=== PATIENT | female | born 1960 | race Caucasian/White ===

== ENCOUNTER → 2016-11-04 | Outpatient (CLI) | payer MEDICARE, MEDICAID | LOC: RAD 08:45 | PROVIDERS: ATTEND Orthopaedic Surgery | DX: M25.562 Pain in left knee (principal) ==

== ENCOUNTER → 2016-11-07 | Outpatient (CLI) | payer MEDICARE, MEDICAID ==
[2016-11-07 11:27] LABS: APPEARANCE,URINE SLIGHTLY-CLOUDY; BILIRUBIN,URINE NEGATIVE (NEGATIVE); GLUCOSE, URINE NEGATIVE (NEGATIVE); KETONES,URINE NEGATIVE (NEGATIVE); LEUKOCYTE ESTERASE,URINE NEGATIVE (NEGATIVE); NITRITE,URINE NEGATIVE (NEGATIVE); PROTEIN,URINE NEGATIVE (NEGATIVE); URINE SPECIFIC GRAVITY 1.018; UROBILINOGEN,URINE NEGATIVE mg/dL (<2.0)
[2016-11-07 11:36] LABS: ABSOLUTE EOSINOPHILS # (AUTO) 0.1 10^3/uL (0.0-0.6); ABSOLUTE LYMPHOCYTES (AUTO) 2.2 10^3/uL (0.5-4.7); ABSOLUTE MONOCYTES (AUTO) 0.5 10^3/uL (0.1-1.4); ABSOLUTE NEUT (AUTO) 3.2 10^3/uL (1.7-8.2); BASOPHILS % (AUTO) 0.5 % (0-2); EOSINOPHILS % (AUTO) 0.9 % (0-6); HEMATOCRIT 43.6 % (36.0-47.0); HEMOGLOBIN 14.1 g/dL (12.0-15.5); HGB HCT DIFFERENCE -1.3; LYMPHOCYTES % (AUTO) 36.5 % (13-45); MEAN CORPUSCULAR HEMOGLOBIN 31.9 pg (27.0-33.4); MEAN CORPUSCULAR HGB CONC 32.3 g/dL (32.0-36.0); MEAN CORPUSCULAR VOLUME 99 fl (80-97); MONOCYTES % (AUTO) 8.5 % (3-13); RED CELL DISTRIBUTION WIDTH 13.4 % (11.5-14.0); SEGMENTED NEUTROPHILS % (AUTO) 53.6 % (42-78)
[2016-11-07 12:02] LABS: ANION GAP 10 (5-19); BLOOD UREA NITROGEN 16 mg/dL (7-20); CALCIUM 8.6 mg/dL (8.4-10.2); CARBON DIOXIDE 29 mmol/L (22-30); CHLORIDE 100 mmol/L (98-107); CREATININE RESULT 0.58 mg/dL (0.52-1.25); GLUCOSE 122 mg/dL (75-110); POTASSIUM 3.7 mmol/L (3.6-5.0)
--- NOTE | 2016-11-07 16:27 | EKG REPORT ---
SEVERITY:- ABNORMAL ECG - SINUS RHYTHM NONSPECIFIC T ABNORMALITIES, ANTERIOR LEADS : Confirmed by: Dale Lee MD 07-Nov-2016 16:27:03
== END ==
LOC: OD 10:06
PROVIDERS: ATTEND Orthopaedic Surgery
DX: Z01.810 Encounter for preprocedural cardiovascular examination (principal); Z01.811 Encounter for preprocedural respiratory examination; Z01.818 Encounter for other preprocedural examination; S83.262D Peripheral tear of lateral meniscus, current injury, left knee, subsequent encounter; X58.XXXD Exposure to other specified factors, subsequent encounter; E11.9 Type 2 diabetes mellitus without complications; Z79.899 Other long term (current) drug therapy
CPT/HCPCS: 36415; 71020; 80048; 81001; 83036; 85025; 93005; 93010

== ENCOUNTER 2016-12-13 08:30 | Day surgery (SDC) | payer MEDICARE, MEDICAID ==
[~2016-12-13 08:30] MED LIST: CEFAZOLIN 2 GM/D5W RTU 2 GM/50 ML RTUPB IV PRN; LIDOCAINE 0.5% INJ-PF (5 MG/ML) 50 ML SDV SUBCUT PRN; NORMAL SALINE 1000 ML IV PRN
[2016-12-13] MEDS ORDERED: LIDOCAINE 0.5%/EPINEPHRINE INJ 50 ML VIAL ONE (08:58)
[2016-12-13] MEDS ORDERED: BUPIVACAINE HCL 0.5 % INJ/PF 30 ML SDV ONE (08:58)
[2016-12-13] MEDS ORDERED: FENTANYL CITRATE INJ/PF 100 MCG/2 ML AMPUL ONE ×2 (09:44)
[2016-12-13] MEDS ORDERED: MIDAZOLAM 2 MG/2 ML INJ ONE ×3 (09:45)
[2016-12-13] MEDS ORDERED: PROPOFOL INJ 200 MG/20 ML VIAL IV ONE (09:45)
[2016-12-13] MEDS ORDERED: ONDANSETRON HCL INJ/PF 4 MG/2 ML SDV IV PRN (10:02)
[2016-12-13] MEDS ORDERED: DIPHENHYDRAMINE HCL 50 MG/ML VIAL IV PRN (10:02)
[2016-12-13] MEDS ORDERED: FENTANYL CITRATE INJ/PF 100 MCG/2 ML AMPUL IV PRN ×3 (10:02)
--- NOTE | 2016-12-13 10:29 | Operative Report ---
Operative Report DATE OF SURGERY: 12/13/16 PREOPERATIVE DIAGNOSIS: Left lateral meniscal tear POSTOPERATIVE DIAGNOSIS: Left lateral meniscal tear, bucket handle. 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 Intact anterior cruciate ligament. Rate 1-2 chondral malacia the medial compartment. Degenerative tear posterior horn medial meniscus. Grade 1-2 chondral malacia the patellofemoral compartment OPERATION: Arthroscopic partial left medial and lateral meniscectomy SURGEON: BROOK SIMMS ANESTHESIA: LMAC PROCEDURE: With the patient supine on the operating table the left lower extremity is insufflated with accommodation Marcaine, Xylocaine, and epinephrine. Subsequent medial lateral infrapatellar portals are created for introduction of arthroscope and debridements instrumentation. The joint is examined Mrs. Medick fashion findings as above. Lateral meniscal tears largely a bucket- handle type tear at the rim. Scissors were placed into the lateral meniscus approximate 12:00 in approximately 4:00 on the face the dial. When these cuts had been made and grabbers and used to retrieve the interval fragment. The edges are smooth using a mechanical shaver as well as electrocautery ablation probe. Likewise, a partial medial meniscectomy is performed from approximately 8:00 to 12:00 on the face the dial. The joint is examined Mrs. Medick fashion with no new findings. Instrumentation is removed. The portals reapproximated using nylon. A sterile compressive dressing is applied and the patient's returned to PACU in satisfactory condition.
[2016-12-13 13:31] VITALS: BP 131/88
== END 2016-12-13 12:25 | disposition home or self-care (01) ==
LOC: OROUT 08:30
PROVIDERS: ATTEND Orthopaedic Surgery
PROC: 0SBD4ZZ Excision of Left Knee Joint, Percutaneous Endoscopic Approach (ICD-10-PCS; 2016-12-13)
PROC: 0SBD4ZZ Excision of Left Knee Joint, Percutaneous Endoscopic Approach (ICD-10-PCS; principal; 2016-12-13 10:30)
DX: M23.322 Other meniscus derangements, posterior horn of medial meniscus, left knee (principal); M23.362 Other meniscus derangements, other lateral meniscus, left knee; M22.42 Chondromalacia patellae, left knee; I10 Essential (primary) hypertension; M06.9 Rheumatoid arthritis, unspecified; G40.909 Epilepsy, unspecified, not intractable, without status epilepticus; E11.9 Type 2 diabetes mellitus without complications
CPT/HCPCS: 29880; 82962; J2250; J3010; J3490; J2704; J0690; 1400

== ENCOUNTER 2017-04-08 14:16 | Emergency (ER) | payer MEDICARE, MEDICAID ==
[2017-04-08] MEDS ORDERED: NORMAL SALINE 1000 ML 1,000 ML IV ONE (14:33)
--- NOTE | 2017-04-08 14:34 | ER Document Report ---
ED GI/ - General Mode of Arrival: Wheelchair Information source: Patient TRAVEL OUTSIDE OF THE [place] IN LAST 30 DAYS: No - HPI Patient complains to provider of: Dysuria, Hematuria, Vomiting Onset: Other - Refer to HPI note Associated symptoms: Chills, Dizzy, Dysuria, Fever, Hematuria, Nausea, Vomiting. denies: Blood in emesis, Blood in stool, Chest pain, Shortness of breath Similar symptoms previously: No Recently seen / treated by doctor: No <JEF ODEN - Last Filed: 04/08/17 17:07> <ARRON GRAY - Last Filed: 04/08/17 23:51> - General Chief Complaint: Nausea/Vomiting Stated Complaint: NAUSEA Time Seen by Provider: 04/08/17 14:20 Notes: Patient is a 56-year old female presenting to the emergency department via EMS for nausea and vomiting. Patient has had these symptoms for 2 days and they have worsened today. Patient also complains of dizziness, fever, chills, body aches, hematuria, and headache. Patient's headache has been present x3 days. Patient has not had a headache like this in the past. Patient states she has had hematuria in the past and she has not followed up with a urologist yet. Patient denies any history of kidney stones. Patient's last bowel movement was yesterday. Patient states she has not eaten since yesterday at lunch. Patient states she has slept for the past 2 days. Patient also states she has not taken her medications but does not say which medications she is prescribed. Patient has also been on multiple courses of Keflex since October; patient states her last dose was about 1-2 weeks ago. Patient denies hematemesis, abdominal pain, chest pain, dyspnea, or vision changes. Patient has a history of type II diabetes mellitus, hypertension, and fibromyalgia. Patient was given 975 mg PO Tylenol, 300 mL normal saline bolus, and 4 mg Zofran via EMS. (JEF ODEN) - Related Data Allergies/Adverse Reactions: morphine [Morphine] Allergy (Severe, Verified 12/11/16 15:07) Anaphylaxis mephobarbital [From Mebaral] Allergy (Mild, Verified 12/11/16 15:07) Hives etanercept [From Enbrel] Allergy (Verified 12/13/16 09:15) pregabalin [From Lyrica] Allergy (Verified 12/13/16 09:11) zolpidem [From Ambien] Allergy (Verified 12/13/16 09:11) Blueberries Allergy (Severe, Uncoded 03/30/15 12:54) Anaphylaxis Mushrooms Allergy (Severe, Uncoded 03/30/15 12:54) Anaphylaxis Tomatoes Allergy (Severe, Uncoded 03/30/15 12:54) Anaphylaxis Past Medical History - General Information source: Patient - Social History Smoking Status: Current Every Day Smoker Chew tobacco use (# tins/day): No Frequency of alcohol use: None Drug Abuse: None Family History: CAD, Other - [place] father and brother Patient has suicidal ideation: No Patient has homicidal ideation: No - Past Medical History Cardiac Medical History: Reports: Hx Coronary Artery Disease, Hx Heart Attack, Hx Hypercholesterolemia, Hx Hypertension Pulmonary Medical History: Reports: Hx Asthma, Hx Pneumonia Neurological Medical History: Denies: Hx Seizures - @12YRS OLD Endocrine Medical History: Reports: Hx Diabetes Mellitus Type 2 - takes insulin GI Medical History: Reports: Hx Gastroesophageal Reflux Disease Musculoskeltal Medical History: Reports Hx Arthritis Psychiatric Medical History: Reports: Hx Depression Past Surgical History: Reports: Hx Section, Hx Cholecystectomy, Hx Hysterectomy - Immunizations Immunizations up to date: Yes Hx Diphtheria, Pertussis, Tetanus Vaccination: Yes - 2010 <JEF ODEN - Last Filed: 04/08/17 17:07> Review of Systems - Review of Systems Constitutional: See HPI, Chills, Fever, Malaise EENT: No symptoms reported Cardiovascular: See HPI, Dizziness Respiratory: No symptoms reported Gastrointestinal: See HPI, Nausea, Vomiting, Poor appetite, Poor fluid intake Genitourinary: See HPI, Dysuria, Hematuria Female Genitourinary: No symptoms reported Musculoskeletal: See HPI Skin: No symptoms reported Hematologic/Lymphatic: No symptoms reported Neurological/Psychological: See HPI, Headaches -: Yes All other systems reviewed and negative <JEF ODEN - Last Filed: 04/08/17 17:07> Physical Exam - Vital signs Interpretation: Tachycardic, Febrile <JEF ODEN - Last Filed: 04/08/17 17:07> <ARRON GRAY - Last Filed: 04/08/17 23:51> - Vital signs Vitals: Temp 100.5 F H 06/18/17 14:24 Blood pressure: 105/75, 04/08/2017 14:36 Heart Rate: 108, 04/08/2017 14:36 (JEF ODEN) - Notes Notes: GENERAL: Alert, interacts well, appears uncomfortable. No acute distress. HEAD: Normocephalic, atraumatic. EYES: Pupils equal, round, and reactive to light. Extraocular movements intact. ENT: Oral mucosa moist, tongue midline. NECK: Full range of motion. Supple. Trachea midline. LUNGS: Clear to auscultation bilaterally, no wheezes, rales, or rhonchi. No respiratory distress. HEART: Tachycardic. Regular rhythm. No murmurs, gallops, or rubs. ABDOMEN: Epigastric and right upper quadrant tenderness to palpation, no guarding rebound or rigidity. Non-distended. Bowel sounds present in all 4 quadrants. EXTREMITIES: Moves all 4 extremities spontaneously. Abrasion to the right knee. No edema. No cyanosis. NEUROLOGICAL: Alert and oriented x3. Normal speech. PSYCH: Normal affect, normal mood. SKIN: Warm, dry, normal turgor. (JEF ODEN) Course - Laboratory Result Diagrams: 04/08/17 14:45 04/08/17 14:45 <JEF ODEN - Last Filed: 04/08/17 17:07> - Laboratory Result Diagrams: 04/08/17 14:45 04/08/17 14:45 <ARRON GRAY - Last Filed: 04/08/17 23:51> - Re-evaluation Re-evalutation: 04/08/17 18:01 CBC shows leukocytosis of 16.5, venous blood gas is mildly alkalotic with a low CO2 likely from rapid breathing due to pain and fever, sodium slightly low at 135.5, potassium low at 3.1 this is repleted orally, glucose somewhat elevated at 232, lactic acid normal at 1.3, lipase normal, LFTs normal urinalysis shows small blood, positive nitrates, small leukocyte esterase, 3+ bacteria and 22 WBCs, less than 1 squamous epithelial cells. This has been sent for culture. Consistent with pyelonephritis, patient is treated with Rocephin and then placed on Keflex. Discharged to home. 04/08/17 18:06 Heart rate normalized after a liter of normal saline. (ARRON GRAY) - Vital Signs Vital signs: Temp Pulse Resp BP Pulse Ox 97.5 F 13 121/76 97 04/08/17 18:27 04/08/17 19:01 04/08/17 19:01 04/08/17 19:01 - Laboratory Laboratory results interpreted by me: 04/08/17 04/08/17 04/08/17 14:45 14:45 14:45 WBC 16.5 H Seg Neutrophils % 84.9 H Lymphocytes % 6.0 L Absolute Neutrophils 14.0 H Absolute Monocytes 1.5 H VBG pH 7.51 H VBG pCO2 31.0 L Sodium 135.5 L Potassium 3.1 L Glucose 232 H POC Glucose Total Bilirubin 2.2 H Urine Protein Urine Glucose (UA) Urine Ketones Urine Blood Urine Nitrite Ur Leukocyte Esterase 04/08/17 04/08/17 04/08/17 15:09 15:20 18:01 WBC Seg Neutrophils % Lymphocytes % Absolute Neutrophils Absolute Monocytes VBG pH VBG pCO2 Sodium Potassium Glucose POC Glucose 223 H 190 H Total Bilirubin Urine Protein 30 H Urine Glucose (UA) 50 H Urine Ketones 20 H Urine Blood SMALL H Urine Nitrite POSITIVE H Ur Leukocyte Esterase SMALL H Discharge <JEF ODEN - Last Filed: 04/08/17 17:07> <ARRON GRAY - Last Filed: 04/08/17 23:51> - Discharge Clinical Impression: Pyelonephritis, acute Condition: Stable Disposition: HOME, SELF-CARE Instructions: Pyelonephritis (OM) Prescriptions: Cephalexin Monohydrate [Keflex 500 mg Capsule] 500 mg PO QID #28 capsule Referrals: MARK RUVALCABA DO [Primary Care Provider] - Follow up in 3-5 days Scribe Attestation: 04/08/17 23:51 I personally performed the services described in the documentation, reviewed and edited the documentation which was dictated to the scribe in my presence, and it accurately records my words and actions. (ARRON GRAY) Scribe Documentation - Scribe Written by Scribe:: Irina Sullivan, 04/08/2017 16:10 acting as scribe for :: Andrae <JEF ODEN - Last Filed: 04/08/17 17:07>
[2017-04-08 15:06] LABS: ABSOLUTE BASOPHILS # (AUTO) 0.1 10^3/uL (0.0-0.2); ABSOLUTE MONOCYTES (AUTO) 1.5 10^3/uL (0.1-1.4); BASOPHILS % (AUTO) 0.3 % (0-2); HEMATOCRIT 43.7 % (36.0-47.0); HEMOGLOBIN 14.5 g/dL (12.0-15.5); HGB HCT DIFFERENCE -0.2; MEAN CORPUSCULAR HEMOGLOBIN 31.3 pg (27.0-33.4); MEAN CORPUSCULAR HGB CONC 33.1 g/dL (32.0-36.0); MEAN CORPUSCULAR VOLUME 95 fl (80-97); MONOCYTES % (AUTO) 8.8 % (3-13); RED BLOOD COUNT 4.62 10^6/uL (3.72-5.28); RED CELL DISTRIBUTION WIDTH 13.3 % (11.5-14.0); SEGMENTED NEUTROPHILS % (AUTO) 84.9 % (42-78); WHITE BLOOD COUNT 16.5 10^3/uL (4.0-10.5)
[2017-04-08 15:10] LABS: VENOUS BLOOD HCO3 24.2 mmol/L (20-32); VENOUS BLOOD PH 7.51 (7.30-7.42)
[2017-04-08] MEDS ORDERED: ONDANSETRON HCL INJ/PF 4 MG/2 ML SDV IV ONE (15:12)
[2017-04-08] MEDS ORDERED: KETOROLAC TROMETHAMINE INJ/PF 30 MG/1 ML SDV IV ONE (15:12)
[2017-04-08 15:22] LABS: ALANINE AMINOTRANSFERASE 32 U/L (9-52); ALBUMIN 3.6 g/dL (3.5-5.0); ALKALINE PHOSPHATASE 89 U/L (38-126); ANION GAP 13 (5-19); ASPARTATE AMINO TRANSFERASE 18 U/L (14-36); BILIRUBIN,DIRECT 0.2 mg/dL (0.0-0.4); BILIRUBIN,TOTAL 2.2 mg/dL (0.2-1.3); BLOOD UREA NITROGEN 11 mg/dL (7-20); CALCIUM 8.8 mg/dL (8.4-10.2); CARBON DIOXIDE 22 mmol/L (22-30); CHLORIDE 101 mmol/L (98-107); CREATININE RESULT 0.59 mg/dL (0.52-1.25); GLUCOSE 232 mg/dL (75-110); POTASSIUM 3.1 mmol/L (3.6-5.0); SODIUM 135.5 mmol/L (137-145); TOTAL PROTEIN 6.6 g/dL (6.3-8.2)
[2017-04-08 15:37] LABS: APPEARANCE,URINE SLIGHTLY-CLOUDY; BILIRUBIN,URINE NEGATIVE (NEGATIVE); GLUCOSE, URINE 50 mg/dL (NEGATIVE); KETONES,URINE 20 mg/dL (NEGATIVE); LEUKOCYTE ESTERASE,URINE SMALL (NEGATIVE); NITRITE,URINE POSITIVE (NEGATIVE); PROTEIN,URINE 30 mg/dL (NEGATIVE); URINE SPECIFIC GRAVITY 1.024; UROBILINOGEN,URINE NEGATIVE mg/dL (<2.0)
--- NOTE | 2017-04-08 16:07 | RADIOLOGY REPORT (SQ) ---
EXAM DESCRIPTION: CHEST PA/LAT COMPLETED DATE/TIME: 04/08/2017 3:59 pm REASON FOR STUDY: N/V/D, fevers COMPARISON: 01/29/2016 EXAM PARAMETERS: NUMBER OF VIEWS: two views TECHNIQUE: Digital Frontal and Lateral radiographic views of the chest acquired. RADIATION DOSE: NA LIMITATIONS: none FINDINGS: LUNGS AND PLEURA: No opacities, masses or pneumothorax. No pleural effusion. MEDIASTINUM AND HILAR STRUCTURES: No masses or contour abnormalities. HEART AND VASCULAR STRUCTURES: Heart normal size. No evidence for failure. BONES: No acute findings. HARDWARE: None in the chest. OTHER: No other significant finding. IMPRESSION: NO SIGNIFICANT RADIOGRAPHIC FINDING IN THE CHEST. TECHNICAL DOCUMENTATION: JOB ID: [id number] [employer]- All Rights Reserved
[2017-04-08] MEDS ORDERED: CEFTRIAXONE 1 GM/D5W RTU 50 ML IV ONE (16:48)
[2017-04-08] MEDS ORDERED: HYDROCODONE/ACETAMINOPHEN 5-325 MG 6 TAB/DSPK PO PRN (18:05)
[2017-04-08] MEDS ORDERED: ONDANSETRON ODT 4 MG TAB (6 TAB/DSPK) PO PRN (18:05)
[2017-04-08] MEDS ORDERED: POTASSIUM CHLORIDE 10 MEQ TABLET.SA PO ONE (19:15)
[2017-04-08 19:20] VITALS: BP 121/76
--- NOTE | 2017-04-09 10:22 | EKG REPORT ---
SEVERITY:- OTHERWISE NORMAL ECG - SINUS TACHYCARDIA : Confirmed by: Mercedes Frye MD 09-Apr-2017 10:21:08
== END 2017-04-08 19:20 | disposition home or self-care (01) ==
LOC: ER 14:16
DX: N10 Acute pyelonephritis (principal); D72.829 Elevated white blood cell count, unspecified; R42 Dizziness and giddiness; R11.2 Nausea with vomiting, unspecified; R50.9 Fever, unspecified; R31.9 Hematuria, unspecified; R00.0 Tachycardia, unspecified; R51 Headache; R53.81 Other malaise; R63.0 Anorexia; E11.9 Type 2 diabetes mellitus without complications; I25.10 Atherosclerotic heart disease of native coronary artery without angina pectoris; I25.2 Old myocardial infarction; I10 Essential (primary) hypertension; J45.909 Unspecified asthma, uncomplicated; F17.200 Nicotine dependence, unspecified, uncomplicated; Z88.8 Allergy status to other drugs, medicaments and biological substances; Z88.6 Allergy status to analgesic agent; Z87.892 Personal history of anaphylaxis; Z91.018 Allergy to other foods; Z88.5 Allergy status to narcotic agent
CPT/HCPCS: 93005; 99284; 96361; 51701; 96375; 96365; 36415; 87040; 87086; 82962; 83690; 85025; 85610; 87077; 87088; 80053; 81001; 87186; 82803; 83605; 71020; 93010; J1885; J2405; J7030; J0696; A9270 ×2

== ENCOUNTER → 2017-07-31 | Outpatient (CLI) | payer MEDICAID, MEDICARE ==
--- NOTE | 2017-07-31 16:42 | WOMENS IMAGING REPORT ---
EXAM DESCRIPTION: BILAT SCREENING MAMMO W/CAD COMPLETED DATE/TIME: 07/31/2017 8:00 am REASON FOR STUDY: SCREENING MAMMO Z12.31 ENCNTR SCREEN MAMMOGRAM FOR MALIGNANT NEOPLASM OF [place]KI COMPARISON: 2011 to 2015 TECHNIQUE: Standard craniocaudal and mediolateral oblique views of each breast recorded using digita l acquisition. LIMITATIONS: None. FINDINGS: No masses, calcifications or architectural distortion. No areas of suspicion. Read with the assistance of CAD. .[facility] - R2 Cenova Version 1.3 .[facility] - R2 Cenova Version 1.3 .[facility] - R2 Cenova Version 2.4 .[facility] [place] - R2 Cenova Version 2.4 .[facility] - R2 Prosthodontist/Owner Version 9.2 IMPRESSION: NORMAL MAMMOGRAM. BIRADS 1. BREAST DENSITY: b. There are scattered areas of fibroglandular density. BIRAD: 1 NEGATIVE RECOMMENDATION: ROUTINE SCREENING COMMENT: The patient has been notified of the results by letter per MQSA requirements. Additional no tification policies are in place for contacting patient with suspicious or incomplete findings. Quality ID #[id number]: The [employer] recommends an annual screening mammogram for women aged 40 years or over. This facility utilizes a reminder system to ensure that all patients receive reminder letters, and/or direct phone calls for appointments. This includes reminders for routine scr eening mammograms, diagnostic mammograms, or other Breast Imaging Interventions when appropriate. Th is patient will be placed in the appropriate reminder system. The [employer] (ACR) has developed recommendations for screening MRI of the breast s in certain patient populations, to be used in conjunction with mammography. Breast MRI surveillanc e may be appropriate for women with more than 20% lifetime risk of developing breast cancer as deter mined by genetic testing, significant family history of the disease, or history of mantle radiation f or Hodgkins Disease. ACR Practice Guidelines 2008. TECHNICAL DOCUMENTATION: FINDING NUMBER: (1) ASSESSMENT: (1) JOB ID: [id number] [employer]- All Rights Reserved
== END ==
LOC: WI 07:39
PROVIDERS: ATTEND Student in an Organized Health Care Education/Training Program
DX: Z12.31 Encounter for screening mammogram for malignant neoplasm of breast (principal)
CPT/HCPCS: 77067; G0202

== ENCOUNTER 2017-12-12 16:56 | Observation (INO) | payer MEDICARE, MEDICAID ==
[2017-12-12] MEDS ORDERED: NITROGLYCERIN 5 MG (0.2 MG/HR) PATCH.TD24 TD ONE (17:27)
[2017-12-12] MEDS ORDERED: OXYCODONE-ACETAMINOPHEN 5-325 MG TABLET PO ONE ×2 (17:27→23:30)
[2017-12-12] MEDS ORDERED: PROMETHAZINE HCL 25 MG TABLET PO ONE (17:27)
--- NOTE | 2017-12-12 17:30 | ER Document Report ---
ED Cardiac - General Chief Complaint: Chest Pain > 30 Stated Complaint: CHEST PAIN Time Seen by Provider: 12/12/17 17:25 Notes: Patient is having chest pain, starting about 3 PM while she was standing doing dishes. It started in the left upper anterior chest and went down her left arm. She had very severe sweats and felt nauseated but never vomited. [place] pressure in the front of the chest and seemed to have pressure when she breathed. Her symptoms eased only to return again, once more with heavy sweating and feeling dizzy off and on and nauseated. Then, she had a third spell with similar symptoms and called EMS. EMS provided her with a regular aspirin and a sublingual nitro, but the patient says it did not help her symptoms. Patient has a history of coronary artery disease and has had a stent placed in 2012. She has done well since then with little or no chest pains until this current chest pain today. Also has hypertension, NIDDM, high cholesterol. She has a operational risk analyst in [place] whom she is scheduled to see for her yearly checkup in 1 week. She said that she intended to get a bottle of nitroglycerin from him at that visit. TRAVEL OUTSIDE OF THE [place] IN LAST 30 DAYS: No - Related Data Allergies/Adverse Reactions: morphine [Morphine] Allergy (Severe, Verified 12/12/17 17:14) Anaphylaxis mephobarbital [From Mebaral] Allergy (Mild, Verified 12/12/17 17:14) Hives etanercept [From Enbrel] Allergy (Verified 12/12/17 17:14) pregabalin [From Lyrica] Allergy (Verified 12/12/17 17:14) zolpidem [From Ambien] Allergy (Verified 12/12/17 17:14) Blueberries Allergy (Severe, Uncoded 12/12/17 17:14) Anaphylaxis Mushrooms Allergy (Severe, Uncoded 12/12/17 17:14) Anaphylaxis Tomatoes Allergy (Severe, Uncoded 12/12/17 17:14) Anaphylaxis Past Medical History - Social History Smoking Status: Current Every Day Smoker - Says she smokes 3 or 4 cigarettes a day. Family History: Reviewed & Not Pertinent, CAD, Other - [place] father and brother Patient has suicidal ideation: No Patient has homicidal ideation: No - Past Medical History Cardiac Medical History: Reports: Hx Coronary Artery Disease, Hx Heart Attack, Hx Hypercholesterolemia, Hx Hypertension Pulmonary Medical History: Reports: Hx Asthma, Hx Pneumonia Endocrine Medical History: Reports: Hx Diabetes Mellitus Type 2 - takes insulin GI Medical History: Reports: Hx Gastroesophageal Reflux Disease Musculoskeltal Medical History: Reports Hx Arthritis, Reports Hx Fibromyalgia Psychiatric Medical History: Reports: Hx Depression Past Surgical History: Reports: Hx Section, Hx Cholecystectomy, Hx Hysterectomy - Immunizations Immunizations up to date: Yes Hx Diphtheria, Pertussis, Tetanus Vaccination: Yes - 2010 Review of Systems - Review of Systems Notes: REVIEW OF SYSTEMS: CONSTITUTIONAL : Denies fever. Had flulike symptoms a couple of weeks ago. EENT: Denies eye, ear, nose or mouth or throat pain or other symptoms. CARDIOVASCULAR: Denies chest pain. No peripheral edema. RESPIRATORY: Denies cough, chest congestion, or shortness of breath. GASTROINTESTINAL: Denies abdominal pain or nausea, vomiting, or diarrhea. GENITOURINARY: Denies difficulty or painful urinating, urinary frequency, blood in urine. MUSCULOSKELETAL: Denies back or neck pain. Has generalized joint pains from arthritis, but no joint swelling. No leg pain or swelling. SKIN: Denies rash or skin lesions. NEUROLOGICAL: Denies LOC or altered mental status. Denies headache. Denies sensory loss or motor deficits. ALL OTHER SYSTEMS REVIEWED AND NEGATIVE. Physical Exam - Vital signs Vitals: Temp 98.3 F 12/12/17 17:00 Interpretation: Normal, Hypotensive - Blood pressure slightly low, one reading of 97/62. - Notes Notes: PHYSICAL EXAMINATION: GENERAL: Well-appearing, in no acute distress. Vital signs all normal. Blood pressures slightly low. HEAD: Atraumatic, normocephalic. EYES: Pupils equal round and reactive to light, extraocular movements intact. ENT: oropharynx clear without exudates. Moist mucous membranes. NECK: Normal range of motion, supple. LUNGS: Breath sounds clear and equal bilaterally. No chest wall or rib tenderness to press. HEART: Regular rate and rhythm without murmurs. ABDOMEN: Soft, nontender. No guarding or rebound. No masses. BACK: No tenderness throughout entire back. EXTREMITIES: Normal range of motion without pain. No leg pain or swelling. Negative Homans bilaterally. NEUROLOGICAL: Normal speech, normal gait. Normal sensory, motor, and reflex exams. Awake, alert, and oriented x3. Cranial nerves normal. PSYCH: Normal mood, normal affect. SKIN: Warm, dry, no rashes. Course - Re-evaluation Re-evalutation: 12/12/17 18:55 Entire workup initially normal. EKG without acute changes. Chest x-ray normal. Lab studies all essentially normal. Spoke with Dr. Atkinson, and he said he would refer patient to the night physician when they come on duty. - Vital Signs Vital signs: Temp Pulse Resp BP Pulse Ox 98.3 F 15 104/70 98 12/12/17 17:00 12/12/17 19:01 12/12/17 19:00 12/12/17 19:01 - Laboratory Result Diagrams: 12/12/17 16:31 12/12/17 16:31 Laboratory results interpreted by me: 12/12/17 12/12/17 16:31 18:30 BUN 21 H Glucose 143 H Urine Nitrite POSITIVE H - Diagnostic Test Radiology results interpreted by me: 12/12/17 18:58 Chest x-ray is normal. - EKG Interpretation by Nd EKG shows normal: Sinus rhythm Rate: Normal - 76. Rhythm: NSR Additional EKG results interpreted by me: 12/12/17 18:58 Patient EKG has some minor ST changes, nonspecific. Discharge - Discharge Clinical Impression: Chest pain, CAD (coronary artery disease) Condition: Stable Disposition: ADMITTED OBSERVATION Admitting Provider: Hospitalist Unit Admitted: Telemetry Referrals: MARK RUVALCABA DO [Primary Care Provider] - Follow up as needed
[2017-12-12 17:38] LABS: ABSOLUTE BASOPHILS # (AUTO) 0.1 10^3/uL (0.0-0.2); ABSOLUTE EOSINOPHILS # (AUTO) 0.1 10^3/uL (0.0-0.6); ABSOLUTE LYMPHOCYTES (AUTO) 2.7 10^3/uL (0.5-4.7); ABSOLUTE MONOCYTES (AUTO) 0.6 10^3/uL (0.1-1.4); ABSOLUTE NEUT (AUTO) 3.3 10^3/uL (1.7-8.2); BASOPHILS % (AUTO) 0.9 % (0-2); EOSINOPHILS % (AUTO) 2.2 % (0-6); HEMATOCRIT 43.7 % (36.0-47.0); HEMOGLOBIN 14.8 g/dL (12.0-15.5); LYMPHOCYTES % (AUTO) 39.4 % (13-45); MEAN CORPUSCULAR HEMOGLOBIN 31.5 pg (27.0-33.4); MEAN CORPUSCULAR HGB CONC 33.8 g/dL (32.0-36.0); MEAN CORPUSCULAR VOLUME 93 fl (80-97); MONOCYTES % (AUTO) 8.5 % (3-13); PLATELET COUNT 273 10^3/uL (150-450); RED BLOOD COUNT 4.69 10^6/uL (3.72-5.28); RED CELL DISTRIBUTION WIDTH 12.3 % (11.5-14.0); TOTAL CELLS COUNTED % (AUTO) 100 %; WHITE BLOOD COUNT 6.8 10^3/uL (4.0-10.5)
[2017-12-12 17:45] LABS: INTERNATIONAL RATION (INR) 0.91; PROTHROMBIN TIME 12.9 SEC (11.4-15.4)
[2017-12-12 18:00] LABS: ALANINE AMINOTRANSFERASE 24 U/L (9-52); ALKALINE PHOSPHATASE 80 U/L (38-126); ANION GAP 12 (5-19); ASPARTATE AMINO TRANSFERASE 23 U/L (14-36); BILIRUBIN,DIRECT 0.4 mg/dL (0.0-0.4); BILIRUBIN,TOTAL 0.9 mg/dL (0.2-1.3); BLOOD UREA NITROGEN 21 mg/dL (7-20); CALCIUM 9.3 mg/dL (8.4-10.2); CARBON DIOXIDE 26 mmol/L (22-30); CHLORIDE 106 mmol/L (98-107); CREATINE KINASE 47 U/L (30-135); GLUCOSE 143 mg/dL (75-110); SODIUM 143.8 mmol/L (137-145); TOTAL PROTEIN 6.9 g/dL (6.3-8.2)
[2017-12-12 18:09] LABS: CREATINE KINASE MB 0.71 ng/mL (<4.55)
[2017-12-12] MEDS ORDERED: NORMAL SALINE 1000 ML 1,000 ML IV ONE (18:12)
[2017-12-12 18:23] LABS: TROPONIN I < 0.012 ng/mL
--- NOTE | 2017-12-12 18:24 | EKG REPORT ---
SEVERITY:- BORDERLINE ECG - SINUS RHYTHM BORDERLINE T ABNORMALITIES, ANT-LAT LEADS : Confirmed by: Dale Lee MD 12-Dec-2017 18:22:51
--- NOTE | 2017-12-12 18:43 | RADIOLOGY REPORT (SQ) ---
EXAM DESCRIPTION: CHEST SINGLE VIEW COMPLETED DATE/TIME: 12/12/2017 6:25 pm REASON FOR STUDY: Chest pain COMPARISON: 04/08/2017 EXAM PARAMETERS: NUMBER OF VIEWS: One view. TECHNIQUE: Single frontal radiographic view of the chest acquired. RADIATION DOSE: NA LIMITATIONS: None. FINDINGS: LUNGS AND PLEURA: No opacities, masses or pneumothorax. No pleural effusion. MEDIASTINUM AND HILAR STRUCTURES: No masses. Contour normal. HEART AND VASCULAR STRUCTURES: Heart normal in size. Normal vasculature. BONES: No acute findings. HARDWARE: None in the chest. OTHER: No other significant finding. IMPRESSION: NO ACUTE RADIOGRAPHIC FINDING IN THE CHEST. TECHNICAL DOCUMENTATION: JOB ID: [id number] [employer]- All Rights Reserved
[2017-12-12 19:13] LABS: APPEARANCE,URINE SLIGHTLY-CLOUDY; BILIRUBIN,URINE NEGATIVE (NEGATIVE); COLOR,URINE YELLOW; GLUCOSE, URINE NEGATIVE (NEGATIVE); KETONES,URINE NEGATIVE (NEGATIVE); LEUKOCYTE ESTERASE,URINE NEGATIVE (NEGATIVE); NITRITE,URINE POSITIVE (NEGATIVE); PROTEIN,URINE NEGATIVE (NEGATIVE); UROBILINOGEN,URINE NEGATIVE mg/dL (<2.0)
[2017-12-12] MEDS ORDERED: DEXTROSE 50%-WATER 25 GM/50 ML DISP.SYRIN IV PRN ×2 (20:36)
[2017-12-12] MEDS ORDERED: DEXTROSE 40% GEL 15 GM TUBE PO PRN ×2 (20:36)
[2017-12-12] MEDS ORDERED: ONDANSETRON 4 MG TAB.RAPDIS PO PRN (20:36)
[2017-12-12] MEDS ORDERED: PROMETHAZINE HCL INJ 25 MG/1 ML VIAL IV PRN (20:36)
[2017-12-12] MEDS ORDERED: ALBUTEROL SULFATE 0.083% NEB 2.5 MG/3 ML AMPUL NEB PRN (20:36)
[2017-12-12] MEDS ORDERED: ACETAMINOPHEN 325 MG TABLET PO PRN (20:36)
[2017-12-12] MEDS ORDERED: GLUCAGON,HUMAN RECOMB 1 MG INJ SUBCUT PRN (20:36)
[2017-12-12] MEDS ORDERED: ENOXAPARIN SODIUM INJ 40 MG/0.4 ML DISP.SYRIN SUBCUT ONE (22:00)
--- NOTE | 2017-12-12 22:44 | PDOC H&P ---
History of Present Illness Admission Date/PCP: 12/12/17 19:55 MARK RUVALCABA DO Patient complains of: Intermittent chest pain since 3 PM. History of Present Illness: DIANA SHORT is a 57 year old female history of CAD/CO (post cardiac cath with one stent placed in 2012), type 2 diabetes mellitus, rheumatoid arthritis and fibromyalgia was admitted with above-mentioned complaints. The patient describes her pain as pressure-like, localized to the left anterior chest wall with radiation down her left arm, lasting about 15 minutes at a time. she rates it as 8/10 intensity which is somewhat improved after she was given 4 baby aspirins and 1 sublingual nitro by EMS. The pain seems to be positional and reproducible. It was associated with shortness of breath, lightheadedness 3 episodes, no syncope, nausea vomiting or palpitations. She said that she felt diaphoretic once. She denied any fever, chills but she has been having a productive cough of clear sputum for the last 2 weeks. She apparently was diagnosed with the flu although she her flu test was negative but her granddaughter had the flu. She said that her chest pain is similar to the pain she felt in 2013. It was not similar to heartburns. In the ED, temperature was 98.3, heart rate 69, respiratory rate 16, blood pressure 104/70 with oxygen saturation of 98% on room air. Her initial troponin was negative and her CXR was unremarkable. She received 0.5 mg nitropaste with improvement in her chest pain which he currently describes as "soreness". Past Medical History Cardiac Medical History: Reports: Coronary Artery Disease, Myocardial Infarction , Hyperlipidema, Hypertension Pulmonary Medical History: Reports: Asthma, Pneumonia Denies: Bronchitis, Chronic Obstructive Pulmonary Disease (COPD), Tuberculosis Neurological Medical History: Denies: Seizures - @12YRS OLD Endocrine Medical History: Reports: Diabetes Mellitus Type 2 - oral medications GI Medical History: Reports: Gastroesophageal Reflux Disease Musculoskeltal Medical History: Reports: Arthritis - rheumatoid arthritis, Fibromyalgia Psychiatric Medical History: Reports: Depression Hematology: Denies: Anemia Past Surgical History Past Surgical History: Reports: Section - x1, Cholecystectomy, Hysterectomy, Other - bilateral knees arthroscopies. Social History Smoking Status: Current Every Day Smoker - Says she smokes 3 or 4 cigarettes a day. Cigarettes Packs Per Day: 4 - 4-5 cigarettes a day for 43 years. Frequency of Alcohol Use: Rare Hx Recreational Drug Use: No Drugs: None Hx Prescription Drug Abuse: No Family History Family History: Reviewed & Not Pertinent, CAD, Other - CO father and brother Parental Family History Reviewed: Yes - Father: CAD/DM2; Mother:CAD/DM2 Children Family History Reviewed: No Sibling(s) Family History Reviewed.: Yes - Brother: CAD/DM2 Medication/Allergy Home Medications: Alprazolam [Xanax 0.5 mg Tablet] 0.5 mg PO Q12HP PRN 12/12/17 Atorvastatin Calcium [Lipitor 20 mg Tablet] 20 mg PO QPM 12/12/17 Celecoxib [Celebrex 100 mg Capsule] 100 mg PO Q12 12/12/17 Colestipol HCl [Colestid 1 gm Tablet] 1 gm PO NOON 12/12/17 Colestipol HCl [Colestid 1 gm Tablet] 1 gm PO QHS 12/12/17 Duloxetine HCl [Cymbalta] 60 mg PO Q12 12/12/17 Folic Acid [Folvite 1 mg Tablet] 1 mg PO QAM 12/12/17 Metoprolol Tartrate [Lopressor 25 mg Tablet] 25 mg PO QAM 12/12/17 Metoprolol Tartrate [Lopressor 25 mg Tablet] 50 mg PO QHS 12/12/17 Montelukast Sodium [Singulair 10 mg Tablet] 10 mg PO QPM 12/12/17 Omeprazole 40 mg PO QAM 12/12/17 Sitagliptin Phos/Metformin HCl [Janumet 50-1,000 mg Tablet] 2 tab PO QPM Allergies/Adverse Reactions: morphine [Morphine] Allergy (Severe, Verified 12/12/17 17:14) Anaphylaxis mephobarbital [From Mebaral] Allergy (Mild, Verified 12/12/17 17:14) Hives etanercept [From Enbrel] Allergy (Verified 12/12/17 17:14) pregabalin [From Lyrica] Allergy (Verified 12/12/17 17:14) zolpidem [From Ambien] Allergy (Verified 12/12/17 17:14) Blueberries Allergy (Severe, Uncoded 12/12/17 17:14) Anaphylaxis Mushrooms Allergy (Severe, Uncoded 02/21/18 17:14) Anaphylaxis Tomatoes Allergy (Severe, Uncoded 12/12/17 17:14) Anaphylaxis Review of Systems Constitutional: ABSENT: chills, fever(s), headache(s), weight gain, weight loss Eyes: ABSENT: visual disturbances Ears: ABSENT: hearing changes Cardiovascular: PRESENT: chest pain, dyspnea on exertion. ABSENT: edema, orthropnea, palpitations Respiratory: PRESENT: cough. ABSENT: hemoptysis Gastrointestinal: PRESENT: hematemesis, hematochezia. ABSENT: abdominal pain, constipation, diarrhea, nausea, vomiting Genitourinary: ABSENT: dysuria, hematuria Musculoskeletal: ABSENT: joint swelling Integumentary: ABSENT: rash, wounds Neurological: PRESENT: dizziness. ABSENT: focal weakness, syncope Psychiatric: ABSENT: anxiety, depression, homidical ideation, suicidal ideation Endocrine: ABSENT: cold intolerance, heat intolerance, polydipsia, polyuria Physical Exam Vital Signs: Temp Pulse Resp BP Pulse Ox 98.3 F 14 102/71 100 12/12/17 20:08 12/12/17 20:08 12/12/17 20:08 12/12/17 20:08 General appearance: PRESENT: no acute distress, well-developed, well-nourished Head exam: PRESENT: atraumatic, normocephalic Eye exam: PRESENT: conjunctiva pink, PERRLA. ABSENT: scleral icterus Mouth exam: PRESENT: moist, tongue midline Neck exam: ABSENT: carotid bruit, JVD Respiratory exam: PRESENT: clear to auscultation yen. ABSENT: rales, rhonchi, wheezes Cardiovascular exam: PRESENT: RRR. ABSENT: diastolic murmur, rubs, systolic murmur Pulses: PRESENT: normal dorsalis pedis pul Vascular exam: PRESENT: normal capillary refill GI/Abdominal exam: PRESENT: normal bowel sounds, soft. ABSENT: distended, rebound, tenderness Rectal exam: PRESENT: deferred Extremities exam: PRESENT: full ROM. ABSENT: pedal edema Neurological exam: PRESENT: alert, awake, oriented to person, oriented to place , oriented to time, oriented to situation, CN II-XII grossly intact. ABSENT: motor sensory deficit Psychiatric exam: PRESENT: appropriate affect, normal mood. ABSENT: homicidal ideation, suicidal ideation Skin exam: PRESENT: dry, intact, warm. ABSENT: cyanosis, rash Results Laboratory Results: CBC: WBC 6.8, hemoglobin 14.8, hematocrit 42.7, platelets 273, MCV 93 RDW 12.3. And BMP: Sodium 143, potassium 4.0, chloride 106, bicarb 26, BUN 21, creatinine 0.7 , glucose 143. PT/INR 12.9/0.91. Troponin negative. UA negative. EKG Comments: 12-lead EKG: Sinus rhythm, ventricular rate 75, Energy 0, T-wave inversion in leads V2 and V3 with flattened T-wave in lead III. No previous EKG to compare. Impressions: Chest X-Ray 12/12/17 18:02 IMPRESSION: NO ACUTE RADIOGRAPHIC FINDING IN THE CHEST. Assessment & Plan - Diagnosis (1) Chest pain Qualifiers: Chest pain type: unspecified Qualified Code(s): R07.9 - Chest pain, unspecified Is this a current diagnosis for this admission?: Yes Plan: Secondary to cardiac etiology and/or musculoskeletal. We will continue to cycle cardiac enzymes and repeat a 12-lead EKG. We will also check ESR and CRP and an echocardiogram in a.m. If her troponins 2 sets remain negative, she will have a nuclear stress test. Of note, the patient apparently follows with cardiology and she has annual nuclear stress test with the last one done in August 2016 which was reportedly negative per patient. will continue ASA and start metoprolol after nuclear stress done. 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 The patient said that she is only on oral medications. Her medications' list needs to be clarified in a.m. (3) Essential hypertension Is this a current diagnosis for this admission?: Yes Plan: We will monitor her blood pressure and adjust medications as needed. Her home medications' list needs to be clarified in a.m. (4) Rheumatoid arthritis Qualifiers: Laterality: unspecified laterality Is this a current diagnosis for this admission?: No Plan: The patient follows with rheumatology as outpatient. She is off methotrexate. she currently takes a medication (not sure about the name) once a month which is due on 01/12/2018. - Time Time Spent: Greater than 70 Minutes Medications reviewed and adjusted accordingly: No - patient is not sure about the accuracy of her medications list. Anticipated discharge: Home Within: within 24 hours - Inpatient Certification Based on my medical assessment, after consideration of the patient's comorbidities, presenting symptoms, or acuity I expect that the services needed warrant INPATIENT care.: Yes I certify that my determination is in accordance with my understanding of Medicare's requirements for reasonable and necessary INPATIENT services [42 CFR 412.3e].: Yes
[2017-12-12] MEDS ORDERED: OXYCODONE-ACETAMINOPHEN 5-325 MG TABLET ONE (23:09)
[2017-12-12] MEDS: NITROGLYCERIN 2% OINTMENT 1 GM PACKET TP SCH (23:10)
[2017-12-12] MEDS ORDERED: OXYCODONE-ACETAMINOPHEN 5-325 MG TABLET PO PRN (23:10)
[2017-12-13 03:45] LABS: HEMATOCRIT 38.6 % (36.0-47.0); MEAN CORPUSCULAR HEMOGLOBIN 31.2 pg (27.0-33.4); MEAN CORPUSCULAR HGB CONC 33.6 g/dL (32.0-36.0); MEAN CORPUSCULAR VOLUME 93 fl (80-97); PLATELET COUNT 213 10^3/uL (150-450); RED BLOOD COUNT 4.16 10^6/uL (3.72-5.28); RED CELL DISTRIBUTION WIDTH 12.4 % (11.5-14.0); WHITE BLOOD COUNT 5.2 10^3/uL (4.0-10.5)
[2017-12-13 04:01] LABS: BLOOD UREA NITROGEN 18 mg/dL (7-20); CALCIUM 8.6 mg/dL (8.4-10.2); CHOLESTEROL 90.26 mg/dL (0-200); GLUCOSE 167 mg/dL (75-110); POTASSIUM 3.8 mmol/L (3.6-5.0); TRIGLYCERIDES 84 mg/dL (<150)
[2017-12-13 04:12] LABS: DIRECT LDL 32 mg/dL (<100)
[2017-12-13 04:13] LABS: ANION GAP 6 (5-19); CARBON DIOXIDE 27 mmol/L (22-30); CHLORIDE 108 mmol/L (98-107); SODIUM 141.3 mmol/L (137-145)
[2017-12-13 04:24] LABS: ERYTHROCYTE SEDIMENTATION RATE 9 mm/hr (0-30)
[2017-12-13] MEDS: NITROGLYCERIN 2% OINTMENT 1 GM PACKET TP SCH (04:32)
[2017-12-13] MEDS ORDERED: LANSOPRAZOLE 30 MG TAB.RAP.DR PO SCH (06:00)
--- NOTE | 2017-12-13 07:59 | EKG REPORT ---
SEVERITY:- BORDERLINE ECG - SINUS RHYTHM BORDERLINE T ABNORMALITIES, ANTERIOR LEADS : Confirmed by: Dale Lee MD 13-Dec-2017 07:59:11
[2017-12-13] MEDS ORDERED: ENOXAPARIN SODIUM INJ 40 MG/0.4 ML DISP.SYRIN SUBCUT SCH (10:00)
[2017-12-13] MEDS ORDERED: ASPIRIN 81 MG TABLET, CHEWABLE PO SCH (10:00)
[2017-12-13] MEDS ORDERED: ASPIRIN 81 MG TABLET, CHEWABLE PO ONE (10:30)
[2017-12-13] MEDS ORDERED: ONDANSETRON 4 MG TAB.RAPDIS PO PRN (10:30)
[2017-12-13 12:34] VITALS: BP 119/62
--- NOTE | 2017-12-13 13:30 | DRAGON STRESS TEST REPORT ---
INTRAVENOUS LEXISCAN CARDIOLITE STRESS TEST USING SINGLE PHOTON EMMISION COMPUTERIZED TOMOGRAPHIC. DATE OF PROCEDURE: December 13, 2017, INDICATION : Chest pain CARDIAC RISK FACTORS: Diabetes, hypertension RESTING EKG: Sinus rhythm without any baseline ST-T wave changes STRESS EKG: No significant changes noted with LexiScan bolus REASON FOR TERMINATION: Protocol. PROCEDURE REPORT: Baseline heart rate 75 beats per minute with blood pressure of 102/84. Patient had no significant complaints. Heart rate at 2 minutes post bolus 101 with a blood pressure of 104/61. 3 minutes post bolus heart rate 95 with blood pressure of 105/64. No significant EKG changes were noted. Patient had no significant complaints during the procedure or postprocedure. Patient injected with Aminophyllin 75 mg at 3 minutes or later after Lexiscan bolus. CONCLUSIONS: Normal EKG and hemodynamic response to IV LexiScan. NUCLEAR DATA: At rest the patient was given 12.80 millicuries of technetium 99 sestamibi injected intravenously. As per protocol rest gated SPECT images were obtained. On day of stress test, the patient was given intravenous LexiScan at a dose of 0.4 mg in 5 mL intravenously, followed by flush with normal saline. Subsequently the stress dose of 35.0 millicuries of technetium 99 sestamibi was injected intravenously. As per protocol stress gated images were obtained. NUCLEAR INTERPRETATION: Both raw and processed data were used for interpretation. Visual, qualitative, computer-generated quantitative data was used. There was good myocardial uptake of technetium compound. Motion artifact and soft tissue attenuations were noted. Increased visceral uptake was noted. No definitive areas of transient perfusion defect noted, No definitive areas of fixed perfusion defect or scars noted. EKG gated imaging showed LV EF at 74 %, rest and stress gated EF similar visually. T. I D. ratio was 0.96. Lung heart ratio noted to be within normal limits 0.29. No significant extracardiac and abnormal radiotracer activities were noted. RV free wall uptake was noted to be WNL. IMPRESSION: Also refer to comments under nuclear interpretation. Also test results needs to be interpreted in the context of pretest probability. 1. No definitive areas of transient perfusion defect noted. 2. There is no definitive scintigraphic evidence of myocardial infarction/scar. 3. EKG gated imaging shows left ventricular ejection fraction of approx. 74 %. 4. Clinical correlation requested as occasionally single vessel disease or balanced ischemia could be missed. In approximately 10% of the cases Lexiscan may not cause adequate vasodilatory stress. RECOMMENDATIONS: Aggressive risk factor modification and medical management. Further evaluation may be needed if continued symptoms or other high risk indicators are noted on clinical evaluation. Close cardiology follow-up is also recommended. Clinical correlation with echocardiogram derived ejection fraction. Inability to exercise by itself can lead to increased cardiovascular event risks. Consider cardiology consultation and or follow-up if clinically indicated. I am available for cardiology evaluation and consultation if requested by the photovoltaic testing technician, unless patient already has a linux kernel developer. CARYN
[2017-12-13] MEDS ORDERED: AMINOPHYLLINE INJ/PF 250 MG/10 ML SDV IV ONE (14:29)
[2017-12-13] MEDS ORDERED: REGADENOSON INJ 0.4 MG/5 ML DISP.SYRIN IV ONE (14:29)
[2017-12-14] MEDS ORDERED: ASPIRIN 81 MG TABLET, CHEWABLE PO SCH (10:00)
--- NOTE | 2017-12-14 15:30 | PDOC DISCHARGE SUMMARY ---
General - Admit/Disc Date/PCP Admission Date/Primary Care Provider: 12/12/17 19:55 MARK RUVALCABA, Discharge Date: 12/13/17 - Discharge Diagnosis (1) Chest pain Is this a current diagnosis for this admission?: Yes (2) Essential hypertension Is this a current diagnosis for this admission?: Yes (4) Rheumatoid arthritis Is this a current diagnosis for this admission?: No (5) Type 2 diabetes mellitus Is this a current diagnosis for this admission?: Yes - Additional Information Resuscitation Status: Full Code Discharge Diet: Diabetic Discharge Activity: Activity As Tolerated Home Medications: Alprazolam [Xanax 0.5 mg Tablet] 0.5 mg PO Q12HP PRN 12/12/17 Atorvastatin Calcium [Lipitor 20 mg Tablet] 20 mg PO QPM 12/12/17 Celecoxib [Celebrex 100 mg Capsule] 100 mg PO Q12 12/12/17 Colestipol HCl [Colestid 1 gm Tablet] 1 gm PO NOON 12/12/17 Colestipol HCl [Colestid 1 gm Tablet] 1 gm PO QHS 12/12/17 Duloxetine HCl [Cymbalta] 60 mg PO Q12 12/12/17 Folic Acid [Folvite 1 mg Tablet] 1 mg PO QAM 12/12/17 Metoprolol Tartrate [Lopressor 25 mg Tablet] 25 mg PO QAM 12/12/17 Metoprolol Tartrate [Lopressor 25 mg Tablet] 50 mg PO QHS 12/12/17 Montelukast Sodium [Singulair 10 mg Tablet] 10 mg PO QPM 12/12/17 Omeprazole 40 mg PO QAM 12/12/17 Sitagliptin Phos/Metformin HCl [Janumet 50-1,000 mg Tablet] 2 tab PO QPM History of Present Illness History of Present Illness: DIANA SHORT is a 57 year old female history of CAD/[place] (post cardiac cath with one stent placed in 2012), type 2 diabetes mellitus, rheumatoid arthritis and fibromyalgia was admitted with above-mentioned complaints. The patient described her pain as pressure-like, localized to the left anterior chest wall with radiation down her left arm, lasting about 15 minutes at a time. she rated it as 8/10 intensity which was somewhat improved after she was given 4 baby aspirins and 1 sublingual nitro by EMS. The pain appeared to be positional and reproducible. It was associated with shortness of breath, lightheadedness 3 episodes, no syncope, nausea vomiting or palpitations. She stated that she felt diaphoretic once. She denied any fever, chills but she had been having a productive cough of clear sputum for the last 2 weeks. She apparently was diagnosed with the flu although the flu test was negative but her granddaughter had the flu. She stated that her chest pain was similar to the pain she felt in 2013. Hospital Course Hospital Course: Patient was admitted under hospitalist service to telemetry unit. There were no cardiac dysrhythmias. Troponin was trended and negative. Patient underwent nuclear stress test which was negative. Echocardiogram was cancel since can be obtained as outpatient if deemed by PCP. Pain was considered to be due to musculoskeletal issues. It responded to Percocet. Since patient was stable prompted to discharge Physical Exam Vital Signs: Temp Pulse Resp BP Pulse Ox 98.4 F 76 18 119/62 100 12/13/17 11:50 12/13/17 11:50 12/13/17 11:50 12/13/17 11:50 12/13/17 11:50 Intake & Output 12/12/17 12/13/17 12/14/17 06:59 06:59 06:59 Intake Total 0 Output Total 300 Balance -300 General appearance: PRESENT: cooperative, obese Head exam: PRESENT: atraumatic, normocephalic Eye exam: PRESENT: conjunctiva pink, EOMI, PERRLA Ear exam: PRESENT: normal external ear exam Mouth exam: PRESENT: moist Neck exam: PRESENT: full ROM. ABSENT: JVD, lymphadenopathy, tenderness Respiratory exam: PRESENT: clear to auscultation yen Cardiovascular exam: PRESENT: RRR. ABSENT: diastolic murmur, systolic murmur Vascular exam: PRESENT: normal capillary refill GI/Abdominal exam: PRESENT: normal bowel sounds, soft. ABSENT: tenderness Extremities exam: PRESENT: full ROM. ABSENT: pedal edema Musculoskeletal exam: PRESENT: ambulatory Neurological exam: PRESENT: alert, awake, oriented to person, oriented to place , oriented to time, oriented to situation, CN II-XII grossly intact Psychiatric exam: PRESENT: appropriate affect, normal mood Skin exam: PRESENT: intact, normal color Results Laboratory Results: 12/13/17 03:24 12/13/17 03:24 12/13/17 12/13/17 03:24 03:24 WBC 5.2 RBC 4.16 Hgb 13.0 Hct 38.6 MCV 93 MCH 31.2 MCHC 33.6 RDW 12.4 Plt Count 213 Sodium 141.3 Potassium 3.8 Chloride 108 H Carbon Dioxide 27 Anion Gap 6 BUN 18 Creatinine 0.73 Est GFR ( Amer) > 60 Est GFR (Non-Af Amer) > 60 Glucose 167 H Calcium 8.6 Magnesium 1.7 Triglycerides 84 Cholesterol 90.26 LDL Cholesterol Direct 32 VLDL Cholesterol 17.0 HDL Cholesterol 47 12/12/17 12/13/17 12/13/17 21:05 03:24 08:10 Troponin I < 0.012 < 0.012 < 0.012 Impressions: Chest X-Ray 12/12/17 18:02 IMPRESSION: NO ACUTE RADIOGRAPHIC FINDING IN THE CHEST. Qualifiers - * PATEINT BEING DISCHARGED WITH ANY OF THE FOLLOWING DIAGNOSIS?: No VTE patient discharged on overlapping Therapy?: No Plan Discharge Plan: Discharge home Time Spent: Less than 30 Minutes
== END 2017-12-13 15:24 | disposition home or self-care (01) ==
LOC: ER 16:56 → EH 19:55 → 5 22:15
PROVIDERS: ADMIT Internal Medicine Geriatric Medicine; ATTEND Internal Medicine Geriatric Medicine
DX: R07.89 Other chest pain (principal); I10 Essential (primary) hypertension; M06.9 Rheumatoid arthritis, unspecified; E11.9 Type 2 diabetes mellitus without complications; M79.7 Fibromyalgia; I25.10 Atherosclerotic heart disease of native coronary artery without angina pectoris; I25.2 Old myocardial infarction; R06.02 Shortness of breath; E66.9 Obesity, unspecified; F17.210 Nicotine dependence, cigarettes, uncomplicated; E78.5 Hyperlipidemia, unspecified; R42 Dizziness and giddiness; R11.0 Nausea; R61 Generalized hyperhidrosis; I95.9 Hypotension, unspecified; K21.9 Gastro-esophageal reflux disease without esophagitis; Z68.29 Body mass index [BMI] 29.0-29.9, adult; Z95.5 Presence of coronary angioplasty implant and graft; Z82.49 Family history of ischemic heart disease and other diseases of the circulatory system; Z90.49 Acquired absence of other specified parts of digestive tract; Z79.84 Long term (current) use of oral hypoglycemic drugs; Z90.710 Acquired absence of both cervix and uterus
CPT/HCPCS: 93005 ×2; 99285; 96360; 36415 ×2; 82553; 82550; 83735; 85025; 85027; 85652; 85610; 86140; 80048; 80053; 81001; 84484 ×2; 83036; 80061; 93017; 71045; 78452; 93010 ×2; A9500; J2785; A9270 ×4; J1650 ×2; J3490 ×3; J7030; J0280; Q9969

== ENCOUNTER → 2018-01-04 | Outpatient (CLI) | payer MEDICARE, MEDICAID ==
[2018-01-04 11:09] LABS: ABSOLUTE BASOPHILS # (AUTO) 0.1 10^3/uL (0.0-0.2); ABSOLUTE EOSINOPHILS # (AUTO) 0.3 10^3/uL (0.0-0.6); ABSOLUTE LYMPHOCYTES (AUTO) 1.5 10^3/uL (0.5-4.7); ABSOLUTE MONOCYTES (AUTO) 0.4 10^3/uL (0.1-1.4); ABSOLUTE NEUT (AUTO) 3.4 10^3/uL (1.7-8.2); BASOPHILS % (AUTO) 1.1 % (0-2); EOSINOPHILS % (AUTO) 5.1 % (0-6); HEMATOCRIT 43.7 % (36.0-47.0); HEMOGLOBIN 14.8 g/dL (12.0-15.5); LYMPHOCYTES % (AUTO) 26.1 % (13-45); MEAN CORPUSCULAR HEMOGLOBIN 31.2 pg (27.0-33.4); MEAN CORPUSCULAR HGB CONC 33.9 g/dL (32.0-36.0); MEAN CORPUSCULAR VOLUME 92 fl (80-97); PLATELET COUNT 228 10^3/uL (150-450); RED BLOOD COUNT 4.75 10^6/uL (3.72-5.28); RED CELL DISTRIBUTION WIDTH 12.3 % (11.5-14.0); SEGMENTED NEUTROPHILS % (AUTO) 60.7 % (42-78); TOTAL CELLS COUNTED % (AUTO) 100 %; WHITE BLOOD COUNT 5.6 10^3/uL (4.0-10.5)
--- NOTE | 2018-01-04 11:17 | RADIOLOGY REPORT (SQ) ---
EXAM DESCRIPTION: CHEST PA/LATERAL COMPLETED DATE/TIME: 01/04/2018 11:09 am REASON FOR STUDY: PRE OP COMPARISON: 12/12/2017. EXAM PARAMETERS: NUMBER OF VIEWS: two views TECHNIQUE: Digital Frontal and Lateral radiographic views of the chest acquired. RADIATION DOSE: NA LIMITATIONS: none FINDINGS: LUNGS AND PLEURA: No opacities, masses or pneumothorax. No pleural effusion. MEDIASTINUM AND HILAR STRUCTURES: No masses or contour abnormalities. HEART AND VASCULAR STRUCTURES: Heart normal size. No evidence for failure. BONES: No acute findings. HARDWARE: None in the chest. OTHER: No other significant finding. IMPRESSION: NO SIGNIFICANT RADIOGRAPHIC FINDING IN THE CHEST. TECHNICAL DOCUMENTATION: JOB ID: [id number] [employer]- All Rights Reserved Reading location - IP/workstation name: [email or web address]
[2018-01-04 11:32] LABS: ANION GAP 8 (5-19); BLOOD UREA NITROGEN 18 mg/dL (7-20); CALCIUM 9.7 mg/dL (8.4-10.2); CARBON DIOXIDE 28 mmol/L (22-30); CHLORIDE 106 mmol/L (98-107); GLUCOSE 149 mg/dL (75-110); POTASSIUM 5.2 mmol/L (3.6-5.0)
[2018-01-04 12:33] LABS: APPEARANCE,URINE CLOUDY; BILIRUBIN,URINE NEGATIVE (NEGATIVE); COLOR,URINE YELLOW; GLUCOSE, URINE NEGATIVE (NEGATIVE); KETONES,URINE NEGATIVE (NEGATIVE); LEUKOCYTE ESTERASE,URINE SMALL (NEGATIVE); NITRITE,URINE POSITIVE (NEGATIVE); PROTEIN,URINE 30 mg/dL (NEGATIVE); URINE SPECIFIC GRAVITY 1.021; UROBILINOGEN,URINE NEGATIVE mg/dL (<2.0)
== END ==
LOC: OD 10:08
PROVIDERS: ATTEND Orthopaedic Surgery
DX: Z01.818 Encounter for other preprocedural examination (principal); M23.322 Other meniscus derangements, posterior horn of medial meniscus, left knee; M23.262 Derangement of other lateral meniscus due to old tear or injury, left knee
CPT/HCPCS: 36415; 71046; 80048; 81001; 83036; 85025

== ENCOUNTER 2018-01-21 05:36 | Inpatient (IN) | payer MEDICARE, MEDICAID ==
--- NOTE | 2018-01-19 12:37 | Physician Advisory Note ---
Physician Advisor ProgressNote .: Pursuant to the plan for Rachael Lyles, I have reviewed the medical record for this patient. Physician Advisor Statement: Status: Attending, please do all of either #1 or #2 below: 1A. Do surgery in Outpatient status - AND B. Change to Inpatient status on POD #1 if patient is not safe to go home then (& document the reason(s) for that) - OR - 2A. Document in H&P (or addendum to H&P, or first note) that: I FULLY EXPECT pt to require at least 2 nights of hospital care & monitoring post-op at the time of the Inpatient order BECAUSE - AND B. If pt unexpectedly recovers so quickly that d/c is indeed safe after 1 MN in hospital after all, Document in DCSummary that I WAS VERY SURPRISED that pt improved so quickly, I didnt expect pt to have any chance of d/c this soon, . Surgical necessity: H&P (or addendum) needs to include all below: A. all non-surgical measures tried, w/details: how long has she used Celebrex , with what results? Has she tried weight loss- if so, what results? Flexibility & muscle strengthening exercises for ___ weeks with what results? PT x __ weeks - with what results? assistive device x ___ weeks, with what results? Therapeutic injections, w/what results? - VS: "nonsurgical medical management would be ineffective or counterproductive and the best treatment option surgical because of bone on bone articulation"? B. level of continued pain with rest/activity/weight-bearing, C. 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 Discussion of case: 57yo w/underlying CAD/stent, HTN, HLD (well controlled w/last total cholesterol level 90), RA, fibromyalgia, OA, back prob.s C5-7, DM-2 (well- controlled: last A1C 6.8%, no chronic kidney dz w/GFR>60), depression, claustrophobia, GERD, prior arthroscopic partial meniscectomy of Lt knee, now w/ progressive degen changes, presenting for Lt TKA. - Therefore, she is ASA Class III, but underlying co-morbidities appear to be well controlled. However, she did have a recent Lexiscan Cardiolite stress test 12/13/17 (normal results), done by her primary physician with "reason" on report listed as "chest pain". - Has been on Celebrex, an anti-inflammatory medicine. - Nurse intake eval indicates pain or functional disability due to arthritis of the joint interferes with walking >1mile, bending/kneeling/stooping, vacuuming/ yardwork, as well as somewhat with vigorous activities, climbing stairs, dressing self, lifting/carrying groceries. - MRI on 11/04/16 shows, per report, "subcortical bony cyst formation at tibial attachment of the ACL without kezia ACL tear. Tiny ... lateral meniscus tear." - There are no subchondral cysts, and no mention of subchondral sclerosis, periarticular osteophytes, joint space narrowing, juoint subluxation, or osteonecrosis specifically mentioned. 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 Thanks for all you do! Please call/text/email if ?estebanSarina Alba [phone]
[~2018-01-21 05:36] MED LIST changes: +BUPIVACAINE INJ/PF LIPOSOME/PF 266 MG/20 ML SDV INJ PRN; -CEFAZOLIN 2 GM/D5W RTU 2 GM/50 ML RTUPB IV PRN; +CEFAZOLIN INJ 1 GM VIAL IV PRN; +IBUPROFEN 800 MG in DEXTROSE 5%-WATER 250 ML IV PRN; +LACTATED RINGERS 1000 ML IV PRN; +LANSOPRAZOLE 15 MG TAB.RAP.DR PO PRN; -NORMAL SALINE 1000 ML IV PRN; +OXYCODONE HCL SR 10 MG TABLET PO PRN; +VANCOMYCIN HCL 1,000 MG in DEXTROSE 5%-WATER 250 ML IV PRN
[2018-01-21] MEDS ORDERED: ALBUTEROL SULFATE 0.083% NEB 2.5 MG/3 ML AMPUL NEB ONE ×2 (06:44→07:00)
[2018-01-21] MEDS ORDERED: MIDAZOLAM 2 MG/2 ML INJ ONE (06:48)
[2018-01-21] MEDS ORDERED: TETRACAINE HCL/PF 20MG/2ML AMPULE (SPINAL) ONE (06:48)
[2018-01-21] MEDS ORDERED: FENTANYL CITRATE INJ/PF 100 MCG/2 ML AMPUL ONE (06:48)
[2018-01-21] MEDS ORDERED: PROPOFOL INJ 200 MG/20 ML VIAL IV ONE ×2 (06:49→11:58)
[2018-01-21] MEDS ORDERED: ACETAMINOPHEN 100 ML IV ONE ×2 (06:49→16:00)
[2018-01-21] MEDS ORDERED: TRANEXAMIC ACID INJ/PF 1,000 MG/10 ML SDV IV ONE ×3 (06:49→12:00)
[2018-01-21] MEDS ORDERED: ONDANSETRON HCL INJ/PF 4 MG/2 ML SDV ONE ×2 (06:49→14:50)
[2018-01-21] MEDS ORDERED: FAMOTIDINE INJ/PF 20 MG/2 ML SDV IV ONE (07:10)
[2018-01-21] MEDS ORDERED: RINGERS SOLUTION,LACTATED 500 ML IV ONE (07:30)
[2018-01-21] MEDS ORDERED: THROMBIN (BOVINE) TOPICAL 20000 UNIT VIAL ONE (07:36)
[2018-01-21] MEDS ORDERED: THROMBIN (BOVINE) 5000 UNIT EPITAXIS KIT ONE (07:36)
[2018-01-21] MEDS ORDERED: BUPIVACAINE INJ/PF LIPOSOME/PF 266 MG/20 ML SDV ONE (07:36)
[2018-01-21] MEDS ORDERED: FENTANYL CITRATE INJ/PF 100 MCG/2 ML AMPUL IV PRN ×4 (09:31→13:59)
[2018-01-21] MEDS ORDERED: PROMETHAZINE HCL INJ 25 MG/1 ML VIAL IV PRN (09:31)
[2018-01-21] MEDS ORDERED: DIPHENHYDRAMINE HCL 50 MG/ML VIAL IV PRN ×2 (09:31→09:53)
[2018-01-21] MEDS ORDERED: ALPRAZOLAM 0.5 MG TABLET PO PRN (09:51)
[2018-01-21] MEDS ORDERED: ACETAMINOPHEN 325 MG TABLET PO PRN (09:53)
[2018-01-21] MEDS ORDERED: MORPHINE SULFATE 10 MG/ML INJ IM PRN (09:53)
[2018-01-21] MEDS ORDERED: ONDANSETRON HCL INJ/PF 4 MG/2 ML SDV IV PRN (09:53)
[2018-01-21] MEDS ORDERED: ZOLPIDEM TARTRATE 5 MG TABLET PO PRN (09:53)
[2018-01-21] MEDS ORDERED: MORPHINE SULFATE 10 MG/ML INJ IV PRN ×3 (09:53)
[2018-01-21] MEDS ORDERED: RINGERS SOLUTION,LACTATED 1,000 ML IV PRN (09:53)
[2018-01-21] MEDS ORDERED: ONDANSETRON 4 MG TAB.RAPDIS PO PRN (09:53)
[2018-01-21] MEDS ORDERED: MAG HYDROX/AL HYDROX/SIMETH SUSP 30 ML UDCUP PO PRN (09:53)
--- NOTE | 2018-01-21 09:57 | Operative Report ---
Operative Report DATE OF SURGERY: 01/21/18 PREOPERATIVE DIAGNOSIS: Left knee arthritis OPERATION: Left knee arthroplasty SURGEON: BROOK SIMMS ANESTHESIA: Spinal TISSUE REMOVED OR ALTERED: Bone to pathology ESTIMATED BLOOD LOSS: 100 PROCEDURE: Implants used: Femur: Carolynn triathlon size 4 CR femur Tibia: 4 tibia Tibial liner: 9 mm CS spacer Patella: 32 mm oval patella Procedure with the patient supine on the operating table the left the limb is prepped and draped in a sterile fashion. The limb was elevated for exsanguination and the tourniquet inflated to 280 torr. A standard midline median parapatellar approach the knee is taken. Access is gained to the femoral canal through the intercondylar notch. Intramedullary alignment instrumentation used to resect 10 mm of distal femur in 5 of valgus. Sizing guide indicated a size 4 femur. Appropriate cutting jig is then used to fashion anterior posterior and chamfer cuts. A trial reduction femurs performed and this is judged to be adequate. Attention was next turned to the tibia. Using an extra medullary alignment system 9 millimeters was resected off the lateral tibial plateau. This is sized to a size 4 tibia. A trial reduction was now performed with a for femur and a for tibia using a 9 millimeters spacer. It is full extension and central patellofemoral tracking. The articular surface the patella was next resected using an oscillating saw. All trial implants were removed. Polymethylmethacrylate is mixed and used to cement the above implants in place. On adequate curing the cement excess cement was removed the tourniquet was deflated hemostasis obtained the wound is then closed in layers using interrupted Vicryl followed by arik. A sterile compressive dressing was applied and the patient returned to recovery room in satisfactory condition.
[2018-01-21] MEDS ORDERED: METOPROLOL TARTRATE 25 MG TABLET PO SCH (10:00)
[2018-01-21] MEDS ORDERED: OXYCODONE HCL SR 10 MG TABLET PO SCH (10:00)
[2018-01-21] MEDS ORDERED: FLUTICASONE NASL SCH (10:00)
[2018-01-21] MEDS ORDERED: AZELASTINE NASL SCH (10:00)
[2018-01-21] MEDS ORDERED: COLESTIPOL HCL 1 GM PO SCH (10:00)
--- NOTE | 2018-01-21 11:26 | RADIOLOGY REPORT (SQ) ---
EXAM DESCRIPTION: KNEE LEFT 2 VIEWS COMPLETED DATE/TIME: 01/21/2018 10:33 am REASON FOR STUDY: Post OP -Long Cassette in PACU M17.12 UNILATERAL PRIMARY OSTEOARTHRITIS, LEFT KNE E COMPARISON: Left knee MRI 11/04/2016 NUMBER OF VIEWS: Two views TECHNIQUE: Digital radiographic images of the left knee post-procedure. LIMITATIONS: None. FINDINGS: BONES: No worrisome or unexpected findings post-procedure. DEVICE: Total knee replacement with patellar resurfacing. SOFT TISSUES: No worrisome findings. Expected postoperative soft tissue changes. IMPRESSION: SATISFACTORY POSTOPERATIVE LEFT KNEE. TECHNICAL DOCUMENTATION: JOB ID: [id number] [employer]- All Rights Reserved Reading location - IP/workstation name: [email or web address]
[2018-01-21] MEDS ORDERED: DEXTROSE 40% GEL 15 GM TUBE PO PRN (11:57)
[2018-01-21] MEDS ORDERED: GLUCAGON,HUMAN RECOMB 1 MG INJ IM PRN (11:57)
[2018-01-21] MEDS ORDERED: DEXTROSE 50%-WATER SYRINGE 12.5 GM/25 ML DOSE IV PRN (11:57)
[2018-01-21] MEDS ORDERED: DEXTROSE 50%-WATER SYRINGE 25 GM/50 ML DOSE IV PRN (11:57)
[2018-01-21] MEDS ORDERED: INSULIN LISPRO 100 UNIT/ML 3 ML VIAL SUBCUT PRN (11:57)
[2018-01-21] MEDS ORDERED: DEXTROSE 40% GEL 15 GM TUBE X 2 PO PRN (11:57)
[2018-01-21] MEDS ORDERED: LIDOCAINE 2% INJ-PF (20 MG/ML) 2 ML AMPUL ONE (14:50)
[2018-01-21] MEDS ORDERED: PHENYLEPHRINE HCL INJ/PF 10 MG/1 ML SDV ONE (14:50)
[2018-01-21] MEDS: FENTANYL CITRATE INJ/PF 100 MCG/2 ML AMPUL IV PRN ×2 (15:01→22:58)
[2018-01-21] MEDS: SENNOSIDES/DOCUSATE 8.6-50 MG 1 EACH TABLET PO SCH (17:45)
[2018-01-21] MEDS: MONTELUKAST SODIUM 10 MG TABLET PO SCH (17:46)
[2018-01-21] MEDS: PREGABALIN 75 MG CAPSULE PO SCH (17:47)
[2018-01-21] MEDS: OXYCODONE HCL SR 10 MG TABLET PO SCH (17:57)
[2018-01-21] MEDS ORDERED: METFORMIN HCL PO SCH (18:00)
[2018-01-21] MEDS ORDERED: SITAGLIPTIN PHOS PO SCH (18:00)
[2018-01-21] MEDS ORDERED: [UNRECOGNIZED DRUG - OTHER] PO SCH (18:00)
[2018-01-21] MEDS ORDERED: SITAGLIPTIN PHOSPHATE 50 MG TABLET PO ONE (19:00)
[2018-01-21] MEDS ORDERED: METFORMIN HCL 500 MG TABLET PO ONE (19:00)
[2018-01-21] MEDS: OXYCODONE HCL IR 5 MG TABLET PO PRN (20:39)
[2018-01-21] MEDS ORDERED: VANCOMYCIN HCL 1,000 MG in DEXTROSE 5%-WATER 250 ML IV ONE (22:00)
[2018-01-21] MEDS: ATORVASTATIN CALCIUM 20 MG TABLET PO SCH (22:39)
[2018-01-21] MEDS: METOPROLOL TARTRATE 50 MG TABLET PO SCH (22:39)
[2018-01-21] MEDS: DULOXETINE HCL 30 MG CAPSULE.DR PO SCH (22:40)
[2018-01-22] MEDS: FENTANYL CITRATE INJ/PF 100 MCG/2 ML AMPUL IV PRN ×3 (01:27→08:02)
[2018-01-22] MEDS: OXYCODONE HCL IR 5 MG TABLET PO PRN ×2 (03:16→14:38)
[2018-01-22] MEDS: LANSOPRAZOLE 30 MG TAB.RAP.DR PO SCH (05:45)
[2018-01-22] MEDS: OXYCODONE HCL SR 10 MG TABLET PO SCH ×2 (05:46→18:37)
--- NOTE | 2018-01-22 06:56 | PDOC PROGRESS REPORT ---
Subjective Progress Note for:: 01/22/18 Reason For Visit: LEFT KNEE ARTHRITIS 57-year-old white female postop day 1 left knee arthroplasty. Patient's had a relatively uneventful course other than complaints of unrelieved pain overnight. Physical Exam Vital Signs: Temp Pulse Resp BP Pulse Ox 36.4 C 80 17 117/74 97 01/22/18 00:01 01/22/18 00:01 01/22/18 00:01 01/22/18 00:01 01/22/18 00:01 Intake & Output 01/20/18 01/21/18 01/22/18 06:59 06:59 06:59 Intake Total 0 5582 Output Total 2100 Balance 0 3482 Weight 95 kg General appearance: PRESENT: mild distress Head exam: PRESENT: normocephalic Respiratory exam: PRESENT: unlabored Cardiovascular exam: PRESENT: RRR Pulses: PRESENT: +1 pedal pulses bilateral Vascular exam: PRESENT: normal capillary refill GI/Abdominal exam: PRESENT: soft Rectal exam: PRESENT: deferred Extremities exam: PRESENT: other - Left lower extremity dressings clean dry and intact. Distally there is brisk capillary refill and sensory examination is intact. Neurological exam: PRESENT: alert, awake, oriented to person, oriented to place , oriented to time, oriented to situation. ABSENT: motor sensory deficit Psychiatric exam: PRESENT: agitated, normal mood. ABSENT: homicidal ideation, suicidal ideation Skin exam: PRESENT: dry, intact, warm. ABSENT: cyanosis, rash Results Laboratory Results: 01/21/18 06:04 Impressions: Knee X-Ray 01/21/18 09:54 IMPRESSION: SATISFACTORY POSTOPERATIVE LEFT KNEE. Status: Imported from PACS Assessment & Plan - Diagnosis (1) Arthritis of left knee Is this a current diagnosis for this admission?: Yes Plan: 57-year-old female postop day 1 left knee arthroplasty with an uneventful postoperative course but with ongoing complaints of pain leading to functional disability. Think this will preclude her consideration of discharge home today. Narcotic medication will be increased in dosage to provide better analgesia and she will continue to work with physical therapy and mobilization weightbearing as tolerated basis. Anticipate discharge home tomorrow with home health nursing. - Time Time Spent with patient: 15-24 minutes Anticipated discharge: Home with Homehealth Within: within 24 hours
[2018-01-22 07:24] LABS: HEMATOCRIT 38.7 % (36.0-47.0); HEMOGLOBIN 12.9 g/dL (12.0-15.5); MEAN CORPUSCULAR HEMOGLOBIN 30.9 pg (27.0-33.4); MEAN CORPUSCULAR HGB CONC 33.3 g/dL (32.0-36.0); MEAN CORPUSCULAR VOLUME 93 fl (80-97); PLATELET COUNT 177 10^3/uL (150-450); RED BLOOD COUNT 4.17 10^6/uL (3.72-5.28); RED CELL DISTRIBUTION WIDTH 12.5 % (11.5-14.0); WHITE BLOOD COUNT 8.2 10^3/uL (4.0-10.5)
[2018-01-22 07:32] LABS: BLOOD UREA NITROGEN 9 mg/dL (7-20); CALCIUM 8.9 mg/dL (8.4-10.2); CARBON DIOXIDE 29 mmol/L (22-30); CHLORIDE 103 mmol/L (98-107); GLUCOSE 166 mg/dL (75-110); POTASSIUM 4.6 mmol/L (3.6-5.0)
[2018-01-22 07:38] LABS: ANION GAP 5 (5-19); SODIUM 136.7 mmol/L (137-145)
[2018-01-22] MEDS: METFORMIN HCL 500 MG TABLET PO SCH ×2 (07:56→18:36)
[2018-01-22] MEDS: SENNOSIDES/DOCUSATE 8.6-50 MG 1 EACH TABLET PO SCH ×2 (10:23→18:37)
[2018-01-22] MEDS: METOPROLOL TARTRATE 50 MG TABLET PO SCH ×2 (10:23→22:41)
[2018-01-22] MEDS: SITAGLIPTIN PHOSPHATE 50 MG TABLET PO SCH (10:24)
[2018-01-22] MEDS: FOLIC ACID 1 MG TABLET PO SCH (10:24)
[2018-01-22] MEDS: PRENATAL VITAMIN W DHA CAPSULE PO SCH (10:25)
[2018-01-22] MEDS: ASPIRIN 81 MG TABLET, ENT COATED PO SCH (10:25)
[2018-01-22] MEDS: DULOXETINE HCL 30 MG CAPSULE.DR PO SCH ×2 (10:26→22:41)
[2018-01-22] MEDS: PREGABALIN 75 MG CAPSULE PO SCH ×2 (10:26→18:37)
[2018-01-22] MEDS ORDERED: OXYCODONE HCL SR 10 MG TABLET PO ONE (11:00)
--- NOTE | 2018-01-22 14:48 | Physician Advisory Note ---
Physician Advisor ProgressNote .: Pursuant to the plan for [facility], I have reviewed the medical record for this patient. Physician Advisor Statement: Status: appropriate for Inpatient status. Progress note states pain unrelieved overnight, causing functional disability, needing higher dose oxycontin on 4 (POD #1). PT notes indicate pt needs to be able to walk 200- 300 ft and have ROM 0-90 degrees, but as of 01/22 AM, only able to walk 150ft, and ROM -5 to 70 degrees only. Needs continued PT progress (w/the help of improved pain control) to be safe for d/c. CK
[2018-01-22] MEDS: MONTELUKAST SODIUM 10 MG TABLET PO SCH (18:37)
[2018-01-22] MEDS: ATORVASTATIN CALCIUM 20 MG TABLET PO SCH (22:41)
[2018-01-23 06:28] LABS: HEMOGLOBIN 13.3 g/dL (12.0-15.5); MEAN CORPUSCULAR HEMOGLOBIN 31.1 pg (27.0-33.4); MEAN CORPUSCULAR VOLUME 92 fl (80-97); PLATELET COUNT 197 10^3/uL (150-450); RED BLOOD COUNT 4.26 10^6/uL (3.72-5.28); RED CELL DISTRIBUTION WIDTH 12.3 % (11.5-14.0)
[2018-01-23] MEDS: LANSOPRAZOLE 30 MG TAB.RAP.DR PO SCH (06:32)
[2018-01-23] MEDS: OXYCODONE HCL SR 10 MG TABLET PO SCH (06:33)
--- NOTE | 2018-01-23 06:58 | PDOC DISCHARGE SUMMARY ---
General - Admit/Disc Date/PCP Admission Date/Primary Care Provider: 01/21/18 05:36 MARK RUVALCABA, Discharge Date: 01/23/18 - Discharge Diagnosis (1) Arthritis of left knee Is this a current diagnosis for this admission?: Yes - Additional Information Resuscitation Status: Full Code Discharge Diet: As Tolerated, Regular Discharge Activity: Balance Activity w/Rest, No Driving, No tub bath Home Medications: Alprazolam [Xanax 0.5 mg Tablet] 0.5 mg PO Q12HP PRN 12/12/17 Atorvastatin Calcium [Lipitor 20 mg Tablet] 20 mg PO QPM 12/12/17 Celecoxib [Celebrex 100 mg Capsule] 200 mg PO Q12 12/12/17 Colestipol HCl [Colestid 1 gm Tablet] 1 gm PO BID 12/12/17 Duloxetine HCl [Cymbalta] 60 mg PO Q12 12/12/17 Folic Acid [Folvite 1 mg Tablet] 1 mg PO QAM 12/12/17 Metoprolol Tartrate [Lopressor 25 mg Tablet] 50 mg PO BID 12/12/17 Montelukast Sodium [Singulair 10 mg Tablet] 10 mg PO QPM 12/12/17 Omeprazole 40 mg PO QAM 12/12/17 Sitagliptin Phos/Metformin HCl [Janumet 50-1,000 mg Tablet] 2 tab PO QPM Aspirin [Aspirin EC] 1 tab PO DAILY 01/07/18 Azelastine/Fluticasone [Dymista Nasal Toponas] 2 sprays NASL BID 01/07/18 Cyclosporine [Restasis] 1 drop BTH_EYE BID 01/07/18 Oxycodone HCl [Oxy-Ir 5 mg Tablet] 5 mg PO Q6HP PRN tablet 01/23/18 History of Present Illness History of Present Illness: DIANA SHORT is a 57 year old female with progressive left knee pain and functional disability. Patient is admitted for an elective left knee arthroplasty. Hospital Course Hospital Course: Patient is admitted through the operating room she undergoes an uncomplicated left knee arthroplasty. She is returned to floor in satisfactory condition. Initially pain control and subsequent decreased function were problematic and limited her participation with physical therapy. By postop day 1 this improved and the patient's function improved. She is subsequent ready for discharge home on postop day 2 with [facility] term [facility] physical therapy will walker bedside commode. Physical Exam Vital Signs: Temp Pulse Resp BP Pulse Ox 37.1 C 96 16 136/81 H 92 01/22/18 23:38 01/22/18 23:38 01/22/18 23:38 01/22/18 23:38 01/22/18 23:38 Intake & Output 01/21/18 01/22/18 01/23/18 06:59 06:59 06:59 Intake Total 0 5582 1315 Output Total 2100 1150 Balance 0 3482 165 Weight 95 kg General appearance: PRESENT: mild distress Head exam: PRESENT: normocephalic Respiratory exam: PRESENT: unlabored Cardiovascular exam: PRESENT: RRR Pulses: PRESENT: +1 pedal pulses bilateral Vascular exam: PRESENT: normal capillary refill GI/Abdominal exam: PRESENT: soft Rectal exam: PRESENT: deferred Extremities exam: PRESENT: other - Left knee compressive dressing is removed. The underlying op site is clean dry and intact. It is left in place. Neurological exam: PRESENT: alert, awake, oriented to person, oriented to place , oriented to time, oriented to situation. ABSENT: motor sensory deficit Psychiatric exam: PRESENT: anxious, appropriate affect, normal mood. ABSENT: homicidal ideation, suicidal ideation Skin exam: PRESENT: dry, intact, warm. ABSENT: cyanosis, rash Results Laboratory Results: 01/23/18 06:20 01/22/18 06:24 01/22/18 01/22/18 01/23/18 06:24 06:24 06:20 WBC 8.2 10.0 RBC 4.17 4.26 Hgb 12.9 13.3 Hct 38.7 39.0 MCV 93 92 MCH 30.9 31.1 MCHC 33.3 34.0 RDW 12.5 12.3 Plt Count 177 197 Sodium 136.7 L Potassium 4.6 Chloride 103 Carbon Dioxide 29 Anion Gap 5 BUN 9 Creatinine 0.61 Est GFR ( Amer) > 60 Est GFR (Non-Af Amer) > 60 Glucose 166 H Calcium 8.9 Impressions: Knee X-Ray 01/21/18 09:54 IMPRESSION: SATISFACTORY POSTOPERATIVE LEFT KNEE. Status: Imported from PACS Qualifiers - * PATEINT BEING DISCHARGED WITH ANY OF THE FOLLOWING DIAGNOSIS?: No VTE patient discharged on overlapping Therapy?: Yes Plan Discharge Plan: Patient to be discharged home with home health long term health physical therapy, wheeled walker, bedside commode. She is weightbearing as tolerated with range of motion strengthening exercises. Follow-up with Dr. Wolf and [facility] for surgery in 2 weeks for staple removal.
[2018-01-23] MEDS: FOLIC ACID 1 MG TABLET PO SCH (10:27)
[2018-01-23] MEDS: SITAGLIPTIN PHOSPHATE 50 MG TABLET PO SCH (10:27)
[2018-01-23] MEDS: SENNOSIDES/DOCUSATE 8.6-50 MG 1 EACH TABLET PO SCH (10:27)
[2018-01-23] MEDS: METOPROLOL TARTRATE 50 MG TABLET PO SCH (10:28)
[2018-01-23] MEDS: PREGABALIN 75 MG CAPSULE PO SCH (10:28)
[2018-01-23] MEDS: DULOXETINE HCL 30 MG CAPSULE.DR PO SCH (10:29)
[2018-01-23] MEDS: METFORMIN HCL 500 MG TABLET PO SCH (10:30)
[2018-01-23] MEDS: ASPIRIN 81 MG TABLET, ENT COATED PO SCH (10:30)
[2018-01-23] MEDS: PRENATAL VITAMIN W DHA CAPSULE PO SCH (10:31)
[2018-01-23 12:11] VITALS: BP 137/79
== END 2018-01-23 16:00 | disposition home health service (06) | DRG 470 ==
LOC: INOR 05:36 → 4S 12:08
PROVIDERS: ADMIT Orthopaedic Surgery; ATTEND Orthopaedic Surgery
PROC: 0SRD0J9 Replacement of Left Knee Joint with Synthetic Substitute, Cemented, Open Approach (ICD-10-PCS; principal; 2018-01-21 08:45)
DX: M17.12 Unilateral primary osteoarthritis, left knee (principal); E11.9 Type 2 diabetes mellitus without complications; E55.9 Vitamin D deficiency, unspecified; F41.9 Anxiety disorder, unspecified; F32.9 Major depressive disorder, single episode, unspecified; M19.90 Unspecified osteoarthritis, unspecified site; K21.9 Gastro-esophageal reflux disease without esophagitis; M25.552 Pain in left hip; M25.551 Pain in right hip; M54.5 Low back pain; M06.9 Rheumatoid arthritis, unspecified; F40.240 Claustrophobia; Z79.899 Other long term (current) drug therapy; Z95.5 Presence of coronary angioplasty implant and graft; Z90.710 Acquired absence of both cervix and uterus; Z88.6 Allergy status to analgesic agent; Z88.8 Allergy status to other drugs, medicaments and biological substances; Z90.49 Acquired absence of other specified parts of digestive tract; Z91.018 Allergy to other foods; Z83.3 Family history of diabetes mellitus; Z80.9 Family history of malignant neoplasm, unspecified; Z82.49 Family history of ischemic heart disease and other diseases of the circulatory system
CPT/HCPCS: 01402; 36415; 80048; 82962; 83036; 84132; 85027; 88305; 88311; 94799; C9290; G8978-GP; G8979-GP; J0131; J0690; J1741; J2250; J2370; J2405; J2704; J3010; J3370; J3490; J7060; S0028

== ENCOUNTER → 2018-06-03 | Outpatient (CLI) | payer MEDICARE ==
--- NOTE | 2018-06-03 15:01 | RADIOLOGY REPORT (SQ) ---
EXAM DESCRIPTION: CT LT LOWER EXTREMITY WITHOUT COMPLETED DATE/TIME: 06/03/2018 1:39 pm REASON FOR STUDY: NONDISP UNSP CONDYLE FX LOWER END OF LEFT FEMUR, INIT S72.415A NONDISP UNSP CONDY LE FX LOWER END OF LEFT FEMUR, IN COMPARISON: None. TECHNIQUE: Axial imaging performed through the left knee with reformatted coronal and sagittal imagi ng windowed for bone and soft tissues. Images saved to PACS. 3D IMAGING: Were 3D images as MIP, SSD, or volume rendering performed at the work station? No. All CT scanners at this facility use dose modulation, iterative reconstruction, and/or weight based d osing when appropriate to reduce radiation dose to as low as reasonably achievable (ALARA). [facility]: Dose Right [facility]: CareDose [facility]: Dose Right [facility]: Teradose 4D [facility]: [employer] LIMITATIONS: Artifact from knee arthroplasty. RADIATION DOSE: CT Rad equipment meets quality standard of care and radiation dose reduction techniq ues were employed. CTDIvol: 4.8 mGy. DLP: 137 mGy-cm. mGy. FINDINGS: SOFT TISSUES: No obvious swelling or foreign body. BONES: Intact knee arthroplasty with components in the expected position. MINERALIZATION: Normal. OTHER: No other significant finding. IMPRESSION: Intact knee arthroplasty. TECHNICAL DOCUMENTATION: JOB ID: [id number] Quality ID # [id number]: Final reports with documentation of one or more dose reduction techniques (e.g., Au tomated exposure control, adjustment of the mA and/or kV according to patient size, use of iterative reconstruction technique) 2010 [employer]- All Rights Reserved Reading location - IP/workstation name: [email or web address]
== END ==
LOC: RAD 13:13
PROVIDERS: ATTEND Family Medicine
DX: S72.415A Nondisplaced unspecified condyle fracture of lower end of left femur, initial encounter for closed fracture (principal); X58.XXXA Exposure to other specified factors, initial encounter; Y93.9 Activity, unspecified; Y92.9 Unspecified place or not applicable

== ENCOUNTER → 2018-07-25 | Day surgery (SDC) | payer MEDICARE ==
[~2018-07-25] MED LIST changes: +BUPIVACAINE HCL 0.5 % INJ/PF 30 ML SDV ONE; -BUPIVACAINE INJ/PF LIPOSOME/PF 266 MG/20 ML SDV INJ PRN; -CEFAZOLIN INJ 1 GM VIAL IV PRN; -IBUPROFEN 800 MG in DEXTROSE 5%-WATER 250 ML IV PRN; -LACTATED RINGERS 1000 ML IV PRN; -LANSOPRAZOLE 15 MG TAB.RAP.DR PO PRN; -LIDOCAINE 0.5% INJ-PF (5 MG/ML) 50 ML SDV SUBCUT PRN; +LIDOCAINE 1% INJ-PF (10 MG/ML) 30 ML SDV ONE; -OXYCODONE HCL SR 10 MG TABLET PO PRN; -VANCOMYCIN HCL 1,000 MG in DEXTROSE 5%-WATER 250 ML IV PRN
--- NOTE | 2018-07-25 08:21 | Operative Report ---
PROCEDURE: KNEE RADIOFREQUENCY Left under ultrasound guidance Preoperative Diagnosis: Left knee osteoarthritis Postoperative Diagnosis:Left knee osteoarthritis 1. Superolateral genicular branch from the vastus lateralis 2. Superomedial genicular branch from the vastus medialis 3. Inferomedial genicular branch from the saphenous nerve 4. Medial retinacular branch from the vastus intermedius DATE OF PROCEDURE: 07/25/2018 ANESTHESIA: Local anesthesia COMPLICATIONS: None reported PROCEDURE IN DETAIL: Hx/PE/meds/allergies/applicable labs reviewed. No changes and no contraindications were found. Full description of the procedure was provided including benefits as well as possible complications including transient increased pain, stomach irritation, mood alteration, transient weakness or parasthesias as well as more serious nerve injury, bleeding, infection or allergic reaction. Informed consent was obtained and documented. The patient was brought to the procedure room and placed on the exam table in a comfortable supine position. The place for needle placement was obtained by manual palpation with ultrasound confirmation. The sterile field was prepared by chloroprep and sterile drapes. Local anesthesia superficial and deep was provided by local infiltration of 2% lidocaine. A 17g 50 mm radiofrequency introducer needle with a 4 mm active tip was placed overlying the [L/R] knee joint and using ultrasound guidance the needle was advanced to a bony endpoint on the superiolateral portion of the femoral condyle of the [L/R] knee. A second needle was advanced to a bony endpoint on the superiomedial portion of the femoral condyle. A third needle was then placed over the inferiomedial portion of the tibial condyle until a bony endpoint was met. 4th needle placed 3mm above the patella with the tip in contact with the Medial retinacular branch from the vastus intermedius. Attempted aspiration yielded no blood. Transverse ultrasound views showed all the needles at 50% depth of the femur and tibia. Motor stimulation was tested at 2.0 volts with no leg movement. Images were saved in AP and lateral. A mixture consisting of 0.5% bupivacaine was slowly injected. Then a radiofrequency ablation of each of the geniculate nerves were done at 80 degrees Celsius for 2 minutes and 30 seconds each. The needles were withdrawn. The patient tolerated the procedure well. After observation the patient was discharged with instructions and follow up. They were also provided contact information to call regarding any concerning symptoms or questions. IMPRESSION: 1. Successful geniculate left knee radiofrequency ablation was performed. 2. The patient was given prescription of home medicines. 3. RTC in 1-2 week(s).
== END ==
LOC: RAD 07:29
PROVIDERS: ATTEND Family Medicine
DX: M17.12 Unilateral primary osteoarthritis, left knee (principal)
CPT/HCPCS: 64640 ×4; J3490 ×2

== ENCOUNTER → 2018-09-05 | Outpatient (CLI) | payer MEDICARE ==
--- NOTE | 2018-09-05 14:17 | WOMENS IMAGING REPORT ---
EXAM DESCRIPTION: 3D SCREENING MAMMO BILAT COMPLETED DATE/TIME: 09/05/2018 9:03 am REASON FOR STUDY: BILATERAL SCREENING MAMMO 3D/Z12.31 Z12.31 ENCNTR SCREEN MAMMOGRAM FOR MALIGNANT NEOPLASM OF MAKI COMPARISON: Multiple since 2011 TECHNIQUE: Standard craniocaudal and mediolateral oblique views of each breast recorded using digita l acquisition and breast tomosynthesis. LIMITATIONS: None. FINDINGS: No masses, calcifications or architectural distortion. No areas of suspicion. Read with the assistance of CAD. .[facility] - R2 [employer] Version 1.3 .[facility] - R2 [employer] Version 1.3 .[facility] Imaging - R2 [employer] Version 2.4 .[facility] - R2 [employer] Version 2.4 .[facility] - R2 General Maintenance Technician Version 9.2 IMPRESSION: NORMAL MAMMOGRAM. BIRADS 1. BREAST DENSITY: b. There are scattered areas of fibroglandular density. BIRAD: 1 NEGATIVE RECOMMENDATION: ROUTINE SCREENING Please continue yearly bilateral screening mammography/tomosynthesis in August 2019 COMMENT: The patient has been notified of the results by letter per SA requirements. Additional no tification policies are in place for contacting patient with suspicious or incomplete findings. Quality ID #[id number]: The [employer] recommends an annual screening mammogram for women aged 40 years or over. This facility utilizes a reminder system to ensure that all patients receive reminder letters, and/or direct phone calls for appointments. This includes reminders for routine scr eening mammograms, diagnostic mammograms, or other Breast Imaging Interventions when appropriate. Th is patient will be placed in the appropriate reminder system. The [employer] (ACR) has developed recommendations for screening MRI of the breast s in certain patient populations, to be used in conjunction with mammography. Breast MRI surveillanc e may be appropriate for women with more than 20% lifetime risk of developing breast cancer as deter mined by genetic testing, significant family history of the disease, or history of mantle radiation f or Hodgkins Disease. ACR Practice Guidelines 2008. DBT Technology DBT is a type of tomographic mammography. With conventional mammography, overlapping breast tissue ma y make lesions difficult to detect, even with good compression. DBT uses an x-ray tube that rotates a round the breast, taking images at different angles. These images are then combined to create thin sl ices of the breast that the radiologist can view as a 3D reconstruction. The [email or web address] unit can perform full-field digital mammograms (2D imaging); or DBT (3D imaging); or both, in a combination mode that quickly performs both the mammogram and the tomosynthesis scan while the breast is still compressed. PQRS 6045F: Fluoroscopic imaging is not utilized for breast tomosynthesis. TECHNICAL DOCUMENTATION: FINDING NUMBER: (1) ASSESSMENT: (1) JOB ID: [id number] [employer]- All Rights Reserved Reading location - IP/workstation name: [facility]
== END ==
LOC: WI 08:38
PROVIDERS: ATTEND Student in an Organized Health Care Education/Training Program
DX: Z12.31 Encounter for screening mammogram for malignant neoplasm of breast (principal)
CPT/HCPCS: 77063; 77067

== ENCOUNTER → 2018-10-02 | Outpatient (CLI) | payer MEDICARE ==
[2018-10-02 13:01] LABS: ABSOLUTE BASOPHILS # (AUTO) 0.1 10^3/uL (0.0-0.2); ABSOLUTE EOSINOPHILS # (AUTO) 0.1 10^3/uL (0.0-0.6); ABSOLUTE LYMPHOCYTES (AUTO) 2.1 10^3/uL (0.5-4.7); ABSOLUTE MONOCYTES (AUTO) 0.6 10^3/uL (0.1-1.4); ABSOLUTE NEUT (AUTO) 4.6 10^3/uL (1.7-8.2); BASOPHILS % (AUTO) 0.9 % (0-2); EOSINOPHILS % (AUTO) 1.7 % (0-6); HEMATOCRIT 42.7 % (36.0-47.0); HEMOGLOBIN 14.6 g/dL (12.0-15.5); LYMPHOCYTES % (AUTO) 27.8 % (13-45); MEAN CORPUSCULAR HEMOGLOBIN 31.4 pg (27.0-33.4); MEAN CORPUSCULAR HGB CONC 34.1 g/dL (32.0-36.0); MEAN CORPUSCULAR VOLUME 92 fl (80-97); MONOCYTES % (AUTO) 8.3 % (3-13); PLATELET COUNT 261 10^3/uL (150-450); RED BLOOD COUNT 4.63 10^6/uL (3.72-5.28); RED CELL DISTRIBUTION WIDTH 12.6 % (11.5-14.0); SEGMENTED NEUTROPHILS % (AUTO) 61.3 % (42-78); TOTAL CELLS COUNTED % (AUTO) 100 %; WHITE BLOOD COUNT 7.5 10^3/uL (4.0-10.5)
[2018-10-02 13:42] LABS: ERYTHROCYTE SEDIMENTATION RATE 5 mm/hr (0-30)
== END ==
LOC: OD 11:37
PROVIDERS: ATTEND Family Medicine
DX: M25.462 Effusion, left knee (principal)
CPT/HCPCS: 36415; 85025; 85652; 86140

== ENCOUNTER → 2019-09-08 | Outpatient (CLI) | payer MEDICARE, MEDICAID ==
--- NOTE | 2019-09-09 08:04 | WOMENS IMAGING REPORT ---
EXAM DESCRIPTION: 3D SCREENING MAMMO BILAT COMPLETED DATE/TIME: 09/08/2019 10:08 am REASON FOR STUDY: Z12.31 SCREENING MAMMO Z12.31 ENCNTR SCREEN MAMMOGRAM FOR MALIGNANT NEOPLASM OF B RE COMPARISON: Multiple since 2011 EXAM PARAMETERS: Views: Standard craniocaudal and mediolateral oblique views of each breast recorded using digital acquisition and breast tomosynthesis. Read with the assistance of CAD. .[facility] - [employer] Coordinator [employer] Version 9.2 LIMITATIONS: None. FINDINGS: No suspicious masses, suspicious calcifications or architectural distortion. No areas of c oncern. IMPRESSION: NEGATIVE MAMMOGRAM. BIRADS 1. BREAST DENSITY: b. There are scattered areas of fibroglandular density. BIRAD: ASSESSMENT: 1 NEGATIVE RECOMMENDATION: ROUTINE SCREENING Please continue yearly bilateral screening mammography/tomosynthesis in August 2020 COMMENT: The patient has been notified of the results by letter per SA requirements. Additional no tification policies are in place for contacting patient with suspicious or incomplete findings. Quality ID #[id number]: The [employer] recommends an annual screening mammogram for women aged 40 years or over. This facility utilizes a reminder system to ensure that all patients receive reminder letters, and/or direct phone calls for appointments. This includes reminders for routine scr eening mammograms, diagnostic mammograms, or other Breast Imaging Interventions when appropriate. Th is patient will be placed in the appropriate reminder system. TECHNICAL DOCUMENTATION: FINDING NUMBER: (1) ASSESSMENT: (1) JOB ID: [id number] [employer]- All Rights Reserved Reading location - IP/workstation name: [email or web address]
== END ==
LOC: WI 09:40
PROVIDERS: ATTEND Physician Assistant
DX: Z12.31 Encounter for screening mammogram for malignant neoplasm of breast (principal)
CPT/HCPCS: 77063; 77067